=== PATIENT | male | born 1940 | race Caucasian/White ===

== ENCOUNTER 2016-06-18 19:36 | Inpatient (IN) | payer OTHER, BC ==
--- NOTE | 2016-06-18 19:49 | PDOC ---
History of Present Illness - General History Source: Patient, Family Exam Limitations: No Limitations - History of Present Illness Initial Comments: 06/18/16 20:16 The patient is a 75 year old male, with a significant past medical history of thalassemia, COPD, DM, colon polyps, diverticulitis, GERD, BPH, HTN, and gallstones, who presents to the emergency department complaining of chills, lightheadedness and body aches since this morning. The patient reports waking up with chills, lightheadedness, body aches, and a subjective fever. He reports his body aches are mainly localized to his shoulders. The patient reports taking Isis Duarte plus and Amoxicillin for symptoms with no relief. The patient denies any cough, headache, or rhinorrhea. Patient reports a history of a chronic wound on the bottom of the right foot for approximately 2 years. He states he had been following up with [facility] wound clinic, but has not been there in several months secondary to moving down to [place] for the winter. While in [place], the patient reports following up with a wound care doctor. He reports the last time he saw his doctors was 2 weeks ago prior to relocating to [place] for the remainder of the year. The patient denies any increased pain at the site of the wound. The patient denies any abdominal pain, nausea, vomiting, diarrhea, constipation, or changes in urination patterns. The patient denies any chest pain, shortness of breath, diaphoresis, or palpitations. The patient denies any sick contacts. PAST MEDICAL HISTORY: Thalassemia, COPD, DM, colon polyps, diverticulitis, GERD , BPH, HTN, and gallstones. Chronic wound to the right foot. PAST SURGICAL HISTORY: Appendectomy, Cholecystectomy, Umbilical Hernia Repair, Left total knee replacement, Right Shoulder Arthroscopy followed by Staph Sepsis FAMILY HISTORY: No pertinent history SOCIAL HISTORY: Pt lives at home with . Recently traveled to [place] for the winter months. Former smoker(Quit 23 years ago). Denies any ETOH or recreational drug use. MEDICATIONS: reviewed ALLERGIES: As per nursing notes General: Yes: +fever, +chills, +body aches. No weakness, no weight loss HEENT: No change in vision. No sore throat. No ear pain CardioVascular: No chest pain or shortness of breath Respiratory:No cough, or wheezing. Gastrointestinal: No nausea, vomiting, diarrhea or constipation. No rectal bleeding Genitourinary: No dysuria, hematuria, or frequency Musculoskeletal: Yes: +Chronic wound to the write foot. No joint or muscle pain or swelling Neurologic: Yes: +Lightheadedness. No headache, vertigo, or loss of consciousness Psychiatric: No depression Skin: No rashes or easy bruising Endocrine: no increased thirst or abnormal weight change Allergic: no skin or latex allergy All other systems reviewed and normal General: Well-nourished well-developed individual, no acute distress HEENT: Throat: Normal, tonsils normal, no erythema or exudate Neck: Supple, no meningeal signs, no lymphadenopathy Eyes::Pupils equal reactive and round, extraocular motion intact Chest: Nontender to palpation Cardiac: S1-S2 normal, regular rate and rhythm, no murmurs rubs or gallops Respiratory: Lungs clear to auscultation bilateral Abdomen: Soft, nondistended, normal bowel sounds, nontender to palpation diffusely Extremities: 2+ pitting edema to the bilateral lower extremities. Right foot wound: Maceration of the tissue with foul odor and discharge. Wound margins appear infected with greenish-yellowish discoloration of the tissue. There is no increase in warmth to the right foot and no tenderness on palpation of the wound. Patient did not express any discomfort when I probed the wound for the culture. Skin: Right foot wound. Neuro: Alert and oriented x3, nonfocal exam, grossly intact, normal gait Psych: Normal mood and affect <Ginger Golden - Last Filed: 06/18/16 21:46> - General History Source: Patient Exam Limitations: No Limitations - History of Present Illness Initial Comments: 06/18/16 20:47 xray: no acute pathology, reviewed by me. A portion of this note was documented by scribe services under my direction. I have reviewed the details of the note, within reason, and agree with the documentation. The case summary and management plan written by me. Assessment and plan: This is a 75-year-old male with significant medical history for diabetes, hypertension, high cholesterol and gout. Patient comes in complaining of fever. Patient had a fever of 100.7 here in the emergency room. Patient had a markedly elevated white count with left shift of 17.9 with 90% neutrophils. The source of patient's fever and infection is most likely a wound on the bottom of the patient's foot. A wound culture was sent the patient was given thank and Sammy. Discussed admission with patient's primary care doctor Dr. Cadena who will admit patient to an inpatient medical surgical bed. <Esvin Zimmerman I - Last Filed: 06/18/16 22:27> - General Chief Complaint: Cold Symptoms Stated Complaint: FEVER Time Seen by Provider: 06/18/16 19:47 Past History <Ginger Golden - Last Filed: 06/18/16 21:46> - Past Medical History Anemia: Yes (mediterranean anemia( thalassemia)) Asthma: No Cancer: No Cardiac Disorders: No CVA: No COPD: No CHF: No Dementia: No Diabetes: Yes (NIDDM) GI Disorders: Yes (COLON POLYPS;DIVERTICULITIS;ISCHEMIC COLITIS;GERD;ADENOMA) Disorders: Yes (hx bph) HTN: Yes Hypercholesterolemia: No Liver Disease: Yes (hx gall stones) Suicide Attempt (Hx): No Seizures: No Thyroid Disease: No - Surgical History Abdominal Surgery: Yes (S/P BENIGNO IH; UMBILICAL HERNIA REPAIR) Appendectomy: Yes Cardiac Surgery: No Cholecystectomy: Yes (10/24) Lung Surgery: No Neurologic Surgery: No Orthopedic Surgery: Yes (LEFT TKR; S/P RIGHT SHOULDER ARTHROSCOPY FOLLOWED BY STAPH SEPSIS) - Immunization History Immunization Up to Date: Yes - Psycho/Social/Smoking Cessation Hx Anxiety: No Suicidal Ideation: No Smoking Status: No (PREVIOUS CIGAR SMOKER) Smoking History: Former smoker Have you smoked in the past 12 months: No Number of Cigarettes Smoked Daily: 0 If you are a former smoker, when did you quit?: 23 YRS AGO Cigars Per Day: 1 Information on smoking cessation initiated: No 'Breaking Loose' booklet given: 09/25/14 Hx Alcohol Use: No Drug/Substance Use Hx: No Substance Use Type: None Hx Substance Use Treatment: No <Esvin Zimmerman I - Last Filed: 06/18/16 22:27> - Past Medical History Allergies/Adverse Reactions: Allergies Allergy/AdvReac Type Severity Reaction Status Date / Time No Known Allergies Allergy Verified 10/19/14 07:24 Home Medications: Ambulatory Orders Lisinopril [Prinivil] 20 mg PO DAILY 09/19/11 Potassium Chloride 20 meq PO DAILY 09/19/11 Allopurinol [Zyloprim -] 100 mg PO DAILY 08/08/14 Acetaminophen [Tylenol .Regular Strength -] 650 mg PO Q6H PRN #30 tablet Furosemide [Lasix -] 40 mg PO PRN PRN 10/19/14 Aspirin [ASA -] 81 mg PO DAILY 11/02/14 Ranitidine [Zantac -] 150 mg PO BID 11/02/14 Sitagliptin Phosphate [Januvia] 25 mg PO DAILY 11/03/14 *Physical Exam - Vital Signs Last Vital Signs Temp Pulse Resp BP Pulse Ox 100.7 F H 76 14 175/65 99 06/18/16 19:38 06/18/16 19:44 06/18/16 19:38 06/18/16 19:38 06/18/16 19:44 <Ginger Golden - Last Filed: 06/18/16 21:46> - Vital Signs Last Vital Signs Temp Pulse Resp BP Pulse Ox 100.7 F H 76 14 175/65 99 06/18/16 19:38 06/18/16 19:44 06/18/16 19:38 06/18/16 19:38 06/18/16 19:44 <Esvin Zimmerman I - Last Filed: 06/18/16 22:27> Heart Score/ECG Review - ECG Impressions Comment:: 06/18/16 21:03 Vent. Rate: 74 bpm IMPRESSION: Sinus rhythm with occasional premature ventricular complexes. Nonspecific T wave abnormality. <Ginger Golden - Last Filed: 06/18/16 21:46> ED Treatment Course - LABORATORY CBC & Chemistry Diagram: 06/18/16 20:01 06/18/16 20:01 - RADIOLOGY Radiograph Interpretation: 06/18/16 21:34 EXAM: CXR INTERPRETED BY: Dr. Taylor REVIEWED BY: Dr. Davis IMPRESSION: No significant interval change or acute lung disease is present EXAM: X-ray of the right foot, 3 views. INTERPRETED BY: Dr. Taylor REVIEWED BY: Dr. Davis IMPRESSION: There are significant osteoarthritic changes involving the tarsometatarsal joints with dorsal spur formation. Significant osteoarthritic changes involving the first interphalangeal joint. There is evidence of osteopenia. No gross acute fracture, bone destruction or periosteal elevation is identified. No gross soft tissue swelling or air is seen. Osteopenia with significant osteoarthritic changes involving the tarsometatarsal joints. Correlate clinically for further evaluation <Ginger Golden - Last Filed: 06/18/16 21:46> - LABORATORY CBC & Chemistry Diagram: 06/18/16 20:01 06/18/16 20:01 <Esvin Zimmerman I - Last Filed: 06/18/16 22:27> *DC/Admit/Observation/Transfer - Attestations Scribe Attestion: 06/18/16 20:16 Documentation prepared by Ginger Golden, acting as medical technical writer for Esvin Zimmerman MD. <Ginger Golden - Last Filed: 06/18/16 21:46> - Discharge Dispostion Admit: Yes <Esvin Zimmerman I - Last Filed: 06/18/16 22:27> Diagnosis at time of Disposition: Infected puncture wound of plantar aspect of foot Qualifiers: Encounter type: initial encounter Laterality: right Qualified Code(s): S91.331A - Puncture wound without foreign body, right foot, initial encounter; L08.9 - Local infection of the skin and subcutaneous tissue, unspecified Fever Qualifiers: Fever type: unspecified Qualified Code(s): R50.9 - Fever, unspecified - Discharge Dispostion Condition at time of disposition: Good - Referrals Referrals: Will Cadena MD [Primary Care Provider] -
[2016-06-18] MEDS ORDERED: ACETAMINOPHEN 500 MG TABLET (FP) PO ONE (20:22)
[2016-06-18] MEDS ORDERED: ACETAMINOPHEN 325 MG TABLET (FP) ONE (20:38)
[2016-06-18 20:39] LABS: MCH 20.9 pg (25.7-33.7); MCHC 31.2 g/dl (32.0-35.9); MEAN CELL VOLUME 67.1 fl (80-96); MEAN PLT VOLUME 8.2 fl (7.5-11.1); PLATELET COUNT 148 K/MM3 (134-434); RDW 14.8 % (11.9-15.9); WHITE BLOOD COUNT 17.9 K/mm3 (4.0-10.8)
[2016-06-18] MEDS ORDERED: VANCOMYCIN 1,000 MG in DEXTROSE 5%-WATER - 250 ML IVPB ONE (20:44)
[2016-06-18] MEDS ORDERED: PIPERACILLIN/TAZOB 3.375 GM/50 ML PRE-DOCKED IVPB STA (20:46)
[2016-06-18 20:47] LABS: ALK PHOS 58 U/L (32-92); ANION GAP 9 (8-16); BILIRUBIN,TOTAL 1.1 mg/dl (0.2-1.0); CO2 26 mmol/L (22-28); CREATININE 1.6 mg/dl (0.6-1.3); GLUCOSE,RANDOM 118 mg/dl (74-106); SGOT/AST 19 U/L (10-42); SGPT/ALT 14 U/L (10-40); TOT PROT 7.3 g/dl (6.4-8.3)
[2016-06-18] MEDS ORDERED: VANCOMYCIN 1,000 MG VIAL (RESTRICTED TO ID ONLY) ONE ×2 (21:01→21:02)
[2016-06-18] MEDS ORDERED: PIPERACILLIN/TAZOBACTAM 3.375 GM VIAL IVPB ONE (21:01)
[2016-06-18 21:25] LABS: HYPOCHROMIA 2+; MICROCYTOSIS 2+
[2016-06-18] MEDS ORDERED: SODIUM CHLORIDE 500 ML IV STA (22:53)
[2016-06-19 00:28] VITALS: BMI 30.4
[2016-06-19] MEDS: ACETAMINOPHEN 325 MG TABLET (FP) PO PRN ×2 (04:35→18:15)
[2016-06-19] MEDS: INSULIN SLIDING SCALE (NOVOLOG) 1 VIAL SQ SCH ×4 (06:32→21:35)
[2016-06-19] MEDS: GLIMEPIRIDE 1 MG TABLET (FP) PO SCH (06:38)
[2016-06-19 08:14] LABS: PH,URINE 5.5 (4.5-8); URINE APPEARANCE Clear; URINE BILIRUBIN Negative (NEGATIVE); URINE GLUCOSE (UA) Negative (NEGATIVE); URINE KETONE Negative (NEGATIVE); URINE LEUK ESTERASE Negative (NEGATIVE); URINE NITRITE Negative (NEGATIVE); URINE UROBILINOGEN 0.2 E.U/dl (0.2-1.0)
[2016-06-19 08:30] LABS: BASOPHIL 0.3 % (0-2.0); EOSINOPHIL 0.4 % (0-4.5); MCHC 31.3 g/dl (32.0-35.9); MEAN PLT VOLUME 8.4 fl (7.5-11.1); NEUTROPHILS 81.7 % (42.8-82.8); PLATELET COUNT 116 K/MM3 (134-434); RDW 14.7 % (11.9-15.9); WHITE BLOOD COUNT 10.1 K/mm3 (4.0-10.8)
[2016-06-19 08:34] LABS: ALBUMIN 3.3 g/dl (3.5-5.0); ALK PHOS 45 U/L (32-92); ANION GAP 8 (8-16); BILIRUBIN,TOTAL 1.1 mg/dl (0.2-1.0); CALCIUM 8.4 mg/dl (8.4-10.2); CO2 24 mmol/L (22-28); CREATININE 1.5 mg/dl (0.6-1.3); GLUCOSE,RANDOM 129 mg/dl (74-106); SGOT/AST 23 U/L (10-42); SGPT/ALT 15 U/L (10-40); TOT PROT 5.8 g/dl (6.4-8.3)
[2016-06-19 09:08] LABS: URINE BLOOD 2+ (NEGATIVE); URINE COLOR YELLOW; URINE PROTEIN 3+ (NEGATIVE)
[2016-06-19] MEDS: NIFEdipine E.R. 90 MG TABLET (FP) PO SCH (09:23)
[2016-06-19] MEDS: ASPIRIN 81 MG CHEWABLE TABLETS PO SCH (09:25)
[2016-06-19] MEDS: RANITIDINE HCL 150 MG TABLET (FP) PO SCH ×2 (09:25→21:34)
[2016-06-19] MEDS: VANCOMYCIN 1 GRAM (PRE-DOCKED) 250 ML IVPB SCH (09:25)
[2016-06-19] MEDS: ALLOPURINOL 100 MG TABLET (FP) PO SCH (09:25)
[2016-06-19] MEDS: HEPARIN NA (PORCINE) 5,000 UNITS/ML 1ML VIAL SQ SCH ×2 (09:25→21:34)
[2016-06-19] MEDS: METOPROLOL SUCCINATE 100 MG TAB.SR.24H (FP) PO SCH ×2 (09:26→21:34)
--- NOTE | 2016-06-19 10:43 | HP ---
[id number] OF PRESENT ILLNESS: patient is a 75 y/o male with a past medical history of HTN, NIDDM, COPD, thalassemia, pancreatitis, charcot's foot, GERD, BPH. Patient reports a chronic wound to the plantar of his right foot. Patient reports he was last evaluated by Dr Garcia (podiatry) at the wound center at [facility] 6 months ago for a debridment of the wound. Patient reports he lives in [place], six months out of the year. 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 He reports developing chills and bodyaches on 06/18/16 in the AM and self medicated with amoxicillin and deirdre seltzer. at the a chronic wound to the plantar of his right foot. The chills and bodyaches persisted throughout out the day and he sought evaluation in the emergency department. ER course was notable for: (1) WBC 17.9 (2) xray of right foot osteopenia, osteoarthritic changes of the tarsometatarsal joints (3) chest xray, no acute lung disease Recent Travel: returned from [place] 2 weeks ago. PAST MEDICAL HISTORY: Gout, Thalassemia, COPD, NIDDM, colon polyps, diverticulitis, GERD, BPH, HTN, gallstone pancreatitis, charcot's foot. PAST SURGICAL HISTORY: Appendectomy, Cholecystectomy, Umbilical Hernia Repair, exp lap for SBO/VALERY, Left total knee replacement, Right Shoulder Arthroscopy. Social History: retired, lives with his , lives in [place], [place] 6months out of the year Smoking: cigars occasionally Alcohol: none Drugs: none Family History: noncontributory Allergies No Known Allergies Allergy (Verified 10/19/14 07:24) HOME MEDICATIONS: Home Medications Medication Instructions Recorded Lisinopril [Prinivil] 20 mg PO DAILY 09/19/11 Potassium Chloride 20 meq PO DAILY 09/19/11 Allopurinol [Zyloprim -] 100 mg PO DAILY 08/08/14 Acetaminophen [Tylenol .Regular 650 mg PO Q6H PRN #30 tablet 09/29/14 Strength -] Furosemide [Lasix -] 40 mg PO PRN PRN 10/19/14 Aspirin [ASA -] 81 mg PO DAILY 11/02/14 Ranitidine [Zantac -] 150 mg PO BID 11/02/14 Sitagliptin Phosphate [Januvia] 25 mg PO DAILY 11/03/14 REVIEW OF SYSTEMS CONSTITUTIONAL: Present: fever, chills, bodyaches Absent: diaphoresis, generalized weakness, malaise, loss of appetite, weight change HEENT: Absent: rhinorrhea, nasal congestion, throat pain, throat swelling, difficulty swallowing, mouth swelling, ear pain, eye pain, visual changes CARDIOVASCULAR: Absent: chest pain, syncope, palpitations, irregular heart rate, lightheadedness , peripheral edema RESPIRATORY: Absent: cough, shortness of breath, dyspnea with exertion, orthopnea, wheezing, stridor, hemoptysis GASTROINTESTINAL: Absent: abdominal pain, abdominal distension, nausea, vomiting, diarrhea, constipation, melena, hematochezia GENITOURINARY: Absent: dysuria, frequency, urgency, hesitancy, hematuria, flank pain, genital pain MUSCULOSKELETAL: Present: wound to plantar of right foot Absent: myalgia, arthralgia, joint swelling, back pain, neck pain SKIN: Absent: rash, itching, pallor HEMATOLOGIC/IMMUNOLOGIC: Absent: easy bleeding, easy bruising, lymphadenopathy, frequent infections ENDOCRINE: Absent: unexplained weight gain, unexplained weight loss, heat intolerance, cold intolerance NEUROLOGIC: Absent: headache, focal weakness or paresthesias, dizziness, unsteady gait, seizure, mental status changes, bladder or bowel incontinence PSYCHIATRIC: Absent: anxiety, depression, suicidal or homicidal ideation, hallucinations. PHYSICAL EXAMINATION Vital Signs - 24 hr 06/18/16 06/19/16 06/19/16 23:32 06:34 09:02 Temperature 99.3 F 98.9 F Pulse Rate 70 78 Respiratory 18 18 Rate Blood Pressure 128/44 136/61 O2 Sat by Pulse 97 95 95 Oximetry (%) GENERAL: Awake, alert, and fully oriented, in no acute distress. HEAD: Normal with no signs of trauma. EYES: Pupils equal, round and reactive to light, extraocular movements intact, sclera anicteric, conjunctiva clear. No lid lag. EARS, NOSE, THROAT: Ears normal, nares patent, oropharynx clear without exudates. Moist mucous membranes. NECK: Normal range of motion, supple without lymphadenopathy, JVD, or masses. LUNGS: Breath sounds equal, clear to auscultation bilaterally. No wheezes, and no crackles. No accessory muscle use. HEART: Regular rate and rhythm, normal S1 and S2 without murmur, rub or gallop. ABDOMEN: Soft, nontender, not distended, normoactive bowel sounds, no guarding, no rebound, no masses. No hepatomegaly or splenomegaly. MUSCULOSKELETAL: Normal range of motion at all joints. No bony deformities or tenderness. No CVA tenderness. UPPER EXTREMITIES: 2+ pulses, warm, well-perfused. No cyanosis. No clubbing. No peripheral edema. LOWER EXTREMITIES: 2+ pulses, warm, venous stasis changes bilaterally, No calf tenderness. +1 edema bilaterally. RIGHT FOOT: increased warmth, plantar--> 3 x 2cm draining wound with erythematous edges, surrounded by macerated tissue, foul smelling purulent drainage noted NEUROLOGICAL: Cranial nerves II-XII intact. Normal speech. Normal gait. PSYCHIATRIC: Cooperative. Good eye contact. Appropriate mood and affect. SKIN: Warm, dry, normal turgor, no rashes or lesions noted, normal capillary refill. Laboratory Results - last 24 hr 06/19/16 06/19/16 06/19/16 06:21 07:29 07:40 WBC 10.1 D RBC 4.79 Hgb 10.0 L D Hct 32.1 L D MCV 67.0 L MCHC 31.3 L RDW 14.7 Plt Count 116 L D MPV 8.4 Neutrophils % 81.7 Lymphocytes % 11.0 D Monocytes % 6.6 D Eosinophils % 0.4 Basophils % 0.3 Sodium Potassium Chloride Carbon Dioxide Anion Gap BUN Creatinine Creat Clearance w eGFR POC Glucometer 149 Random Glucose Calcium Total Bilirubin AST ALT Alkaline Phosphatase B-Natriuretic Peptide Total Protein Albumin Urine Color Yellow Urine Appearance Clear Urine pH 5.5 Ur Specific [place] 1.015 Urine Protein 3+ H Urine Glucose (UA) Negative Urine Ketones Negative Urine Blood 2+ H Urine Nitrite Negative Urine Bilirubin Negative Urine Urobilinogen 0.2 e.u/dl Ur Leukocyte Esterase Negative 06/19/16 07:40 WBC RBC Hgb Hct MCV MCHC RDW Plt Count MPV Neutrophils % Lymphocytes % Monocytes % Eosinophils % Basophils % Sodium 132 L Potassium 3.5 Chloride 100 Carbon Dioxide 24 Anion Gap 8 BUN 25 H Creatinine 1.5 H Creat Clearance w eGFR 45.38 POC Glucometer Random Glucose 129 H Calcium 8.4 Total Bilirubin 1.1 H AST 23 D ALT 15 Alkaline Phosphatase 45 D B-Natriuretic Peptide 1219.10 H Total Protein 5.8 L D Albumin 3.3 L Urine Color Urine Appearance Urine pH Ur Specific [place] Urine Protein Urine Glucose (UA) Urine Ketones Urine Blood Urine Nitrite Urine Bilirubin Urine Urobilinogen Ur Leukocyte Esterase Microbiology 06/18/16 20:01 Nasopharyngeal Swab Influenza Types A,B Antigen (DANIKA) - Final , negative ASSESSMENT/PLAN: 1 ID: sepsis likely secondary to wound of plantar of right foot - pt febrile with leukocytosis, upon admission from the emergency department, leukocytosis resolved, pt afebrile, monitor WBC and fever curve - f/u wound and blood cultures - esr and crp ordered - continue vancomycin and zosyn, first dose given in ED (06/18), awaiting ID consult for approval of antibiotics - MRI of right foot ordered r/o osteomyelitis - case discussed with Dr Garcia (podiatry), 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, will evaluate patient later today 2) card hypertension - continue procardia and toprol, hold lisinopril due to THEODORE - b/p at goal chronic congestive heart failure - elevated bnp, unknown baseline, pt appears euvolemic on exam, in the setting of sepsis and theodore would hold lasix - strict monitoring of I&O 3) endo niddm - continue glimepiride, fingersticks achs with regular insulin coverage - hgba1c ordered 4) neph acute on chronic renal insufficency - creatine 1.6 baseline 0.9 - hold TONI and januvia - repeat bmp in am, will consider ultrasound of kidney/bladder if creatine is not downtrending F/E/N - diabetic/low sodium diet - replete electrolytes prn ppx - zantac - heparin sq - oob - scd dispo: requires inpatient admission Problem List - Problem (1) Fever Code(s): R50.9 - FEVER, UNSPECIFIED Qualifiers: Fever type: unspecified Qualified Code(s): R50.9 - Fever, unspecified (2) Infected puncture wound of plantar aspect of foot Code(s): S91.339A - PUNCTURE WOUND WITHOUT FOREIGN BODY, UNSP FOOT, INIT ENCNTR L08.9 - LOCAL INFECTION OF THE SKIN AND SUBCUTANEOUS TISSUE, UNSP Qualifiers: Encounter type: initial encounter Laterality: right Qualified Code( s): S91.331A - Puncture wound without foreign body, right foot, initial encounter; L08.9 - Local infection of the skin and subcutaneous tissue, unspecified (3) Diabetes mellitus Code(s): E11.9 - TYPE 2 DIABETES MELLITUS WITHOUT COMPLICATIONS Qualifiers: Diabetes mellitus type: type 2 Diabetes mellitus complication status: without complication (4) Hypertension Code(s): I10 - ESSENTIAL (PRIMARY) HYPERTENSION Qualifiers: Hypertension type: essential hypertension Qualified Code(s): I10 - Essential (primary) hypertension (5) Renal insufficiency Code(s): N28.9 - DISORDER OF KIDNEY AND URETER, UNSPECIFIED Visit type - Emergency Visit Emergency Visit: Yes ED Registration Date: 06/18/16 Care time: The patient presented to the Emergency Department on the above date and was hospitalized for further evaluation of their emergent condition. - New Patient This patient is new to me today: Yes Date on this admission: 06/19/16 - Critical Care Critical Care patient: No
[2016-06-19] MEDS ORDERED: PIPERACILLIN/TAZOB 3.375 GM/50 ML PRE-DOCKED IVPB ONE (12:00)
[2016-06-19] MEDS ORDERED: PIPERACILLIN/TAZOB 3.375 GM/50 ML PRE-DOCKED IVPB SCH (12:00)
--- NOTE | 2016-06-19 12:08 | EKG ---
Test Reason : Blood Pressure : / mmHG Vent. Rate : 074 BPM Atrial Rate : 074 BPM P-R Int : 184 ms QRS Dur : 098 ms QT Int : 384 ms P-R-T Axes : 030 -04 027 degrees QTc Int : 426 ms SINUS RHYTHM WITH OCCASIONAL PREMATURE VENTRICULAR COMPLEXES WHEN COMPARED WITH ECG OF 19-OCT-2014 07:51, NO SIGNIFICANT CHANGE WAS FOUND Confirmed by FRANCO BOLAND MD ([id number]) on 06/19/2016 12:07:42 PM Referred By: MD AVITIA Confirmed By:FRANCO BOLAND MD
[2016-06-19] MEDS: POTASSIUM CHLORIDE TABS 20 MEQ TABLET.ER (FP) PO SCH (14:10)
--- NOTE | 2016-06-19 15:03 | CONSULT ---
Consult Consult Specialty:: infectious diseases Referred by:: Reason for Consultation:: fever,wound infection - History of Present Illness Chief Complaint: fever History of Present Illness: 75 y/o male with a past medical history of HTN, NIDDM, COPD, thalassemia, pancreatitis, charcot's foot, GERD, BPH. patient has known chronic problem of his foot and has been seeing pharmaceutical sales specialist here and in [place] which he saw couple of weeks back He reports developing chills and bodyaches yesterday and self medicated with amoxicillin and deirdre seltzer. at the a chronic wound to the plantar of his right foot. his symptoms are probably due to the wound infection and patient was admitted to the hospital for further workup - History Source History Provided By: Patient Limitations to Obtaining History: No Limitations - Past Medical History Cardio/Vascular: Yes: CAD, HTN, Hyperlipdemia Gastrointestinal: Yes: Diverticulitis, GERD, Other Hepatobiliary: Yes: Cholelithiasis, Other Renal/: Yes: BPH Musculoskeletal: Yes: Other Rheumatology: Yes: Gout Endocrine: Yes: Diabetes Mellitus - Past Surgical History Past Surgical History: Yes: Arthrosocopy, Hernia Repair, Joint Replacement, Tonsillectomy - Alcohol/Substance Use Hx Alcohol Use: No - Smoking History Smoking history: Former smoker Have you smoked in the past 12 months: Yes Aproximately how many cigarettes per day: 3 If you are a former smoker, when did you quit?: 23 YRS AGO - Social History Usual Living Arrangement: Other 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 Home Medications - Allergies Allergies/Adverse Reactions: Allergies Allergy/AdvReac Type Severity Reaction Status Date / Time No Known Allergies Allergy Verified 10/19/14 07:24 - Home Medications Home Medications: Ambulatory Orders Lisinopril [Prinivil] 20 mg PO DAILY 09/19/11 Potassium Chloride 20 meq PO DAILY 09/19/11 Allopurinol [Zyloprim -] 100 mg PO DAILY 08/08/14 Acetaminophen [Tylenol .Regular Strength -] 650 mg PO Q6H PRN #30 tablet Furosemide [Lasix -] 40 mg PO PRN PRN 10/19/14 Aspirin [ASA -] 81 mg PO DAILY 11/02/14 Ranitidine [Zantac -] 150 mg PO BID 11/02/14 Sitagliptin Phosphate [Januvia] 25 mg PO DAILY 11/03/14 Family Disease History - Family Disease History Family Disease History: CA: Father, Other: Mother Review of Systems - Review of Systems Constitutional: reports: Chills, Fever, Other Eyes: reports: No Symptoms HENT: reports: No Symptoms Neck: reports: No Symptoms Cardiovascular: reports: No Symptoms Respiratory: reports: No Symptoms Gastrointestinal: reports: No Symptoms Integumentary: reports: Lesions, Wound Neurological: reports: No Symptoms Endocrine: reports: No Symptoms Hematology/Lymphatic: reports: No Symptoms Psychiatric: reports: No Symptoms Physical Exam Vital Signs: Vital Signs Temperature 98.8 F 06/19/16 14:51 Pulse Rate 61 06/19/16 14:51 Respiratory Rate 18 06/19/16 14:51 Blood Pressure 125/52 06/19/16 14:51 O2 Sat by Pulse Oximetry (%) 99 06/19/16 14:51 Constitutional: Yes: Well Nourished, Calm, Mild Distress Eyes: Yes: Conjunctiva Clear HENT: Yes: Atraumatic Neck: Yes: Supple Cardiovascular: Yes: Regular Rate and Rhythm Respiratory: Yes: Regular, CTA Bilaterally Musculoskeletal: Yes: Other Extremities: Yes: Other (charcots foot) Integumentary: Yes: Other (Wound is noted on the plantar aspect of the right foot inferior to the first metatarsal cuneiform base.) Wound/Incision: Yes: Clean/Dry, Open to air Neurological: Yes: Alert, Oriented Psychiatric: Yes: Alert, Oriented Labs: CBC, BMP 06/19/16 07:40 06/19/16 07:40 Imaging - Results Chest X-ray: Report Reviewed, Image Reviewed X-ray: Report Reviewed, Image Reviewed MRI: Report Reviewed, Image Reviewed Assessment/Plan Problem List - Problem (1) Fever Code(s): R50.9 - FEVER, UNSPECIFIED Qualifiers: Fever type: unspecified Qualified Code(s): R50.9 - Fever, unspecified (2) Infected puncture wound of plantar aspect of foot Code(s): S91.339A - PUNCTURE WOUND WITHOUT FOREIGN BODY, UNSP FOOT, INIT ENCNTR L08.9 - LOCAL INFECTION OF THE SKIN AND SUBCUTANEOUS TISSUE, UNSP Qualifiers: Encounter type: initial encounter Laterality: right Qualified Code( s): S91.331A - Puncture wound without foreign body, right foot, initial encounter; L08.9 - Local infection of the skin and subcutaneous tissue, unspecified (3) Diabetes mellitus Code(s): E11.9 - TYPE 2 DIABETES MELLITUS WITHOUT COMPLICATIONS Qualifiers: Diabetes mellitus type: type 2 Diabetes mellitus complication status: without complication (4) Hypertension Code(s): I10 - ESSENTIAL (PRIMARY) HYPERTENSION Qualifiers: Hypertension type: essential hypertension Qualified Code(s): I10 - Essential (primary) hypertension (5) Renal insufficiency Code(s): N28.9 - DISORDER OF KIDNEY AND URETER, UNSPECIFIED plan will await for podiatry to see the patient mri result noted will await all cx reports once we have everything in hand will decide on further mgmt
[2016-06-19 15:34] LABS: URINE BACTERIA FEW /hpf (NEGATIVE); URINE RBC 0-1 /hpf (0-3)
[2016-06-19] MEDS: PIPERACILLIN/TAZOB 3.375 GM 50 ML IVPB SCH (17:34)
[2016-06-19] MEDS ORDERED: PIPERACILLIN/TAZOB 3.375 GM 50 ML IVPB SCH (18:00)
--- NOTE | 2016-06-19 20:23 | CONSULT ---
Consult Consult Specialty:: Raghu Garcia DPKeysha Perianesthesia Manager Reason for Consultation:: Ulceration plantar aspect of the right foot. - History of Present Illness Chief Complaint: Chills and Fever Yesterday History of Present Illness: Patient was admitted with chills and fever possibly caused by ulceration of the right foot. Patient suffers from chronic ulceration in the plantar aspect of the right foot secondary to Charcot fracture. He reports he sees a patrol police lieutenant in [place] occasionally. - History Source History Provided By: Medical Record - Past Medical History Cardio/Vascular: Yes: CAD, HTN, Hyperlipdemia Gastrointestinal: Yes: Diverticulitis, GERD, Other Hepatobiliary: Yes: Cholelithiasis, Other Renal/: Yes: BPH Musculoskeletal: Yes: Other Rheumatology: Yes: Gout Endocrine: Yes: Diabetes Mellitus - Past Surgical History Past Surgical History: Yes: Arthrosocopy, Hernia Repair, Joint Replacement, Tonsillectomy - Alcohol/Substance Use Hx Alcohol Use: No - Smoking History Smoking history: Former smoker Have you smoked in the past 12 months: Yes Aproximately how many cigarettes per day: 3 If you are a former smoker, when did you quit?: 23 YRS AGO - Social History Usual Living Arrangement: 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 Medications - Allergies Allergies/Adverse Reactions: Allergies Allergy/AdvReac Type Severity Reaction Status Date / Time No Known Allergies Allergy Verified 10/19/14 07:24 - Home Medications Home Medications: Ambulatory Orders Lisinopril [Prinivil] 20 mg PO DAILY 09/19/11 Potassium Chloride 20 meq PO DAILY 09/19/11 Allopurinol [Zyloprim -] 100 mg PO DAILY 08/08/14 Acetaminophen [Tylenol .Regular Strength -] 650 mg PO Q6H PRN #30 tablet Furosemide [Lasix -] 40 mg PO PRN PRN 10/19/14 Aspirin [ASA -] 81 mg PO DAILY 11/02/14 Ranitidine [Zantac -] 150 mg PO BID 11/02/14 Sitagliptin Phosphate [Januvia] 25 mg PO DAILY 11/03/14 Family Disease History - Family Disease History Family Disease History: CA: Father, Other: Mother Review of Systems - Review of Systems Constitutional: reports: No Symptoms (Patient denies fever, chills, or malaise today. He reports "he feels fine".) Physical Exam Vital Signs: Vital Signs Temperature 105.0 F H 06/19/16 18:13 Pulse Rate 61 06/19/16 14:51 Respiratory Rate 18 06/19/16 14:51 Blood Pressure 125/52 06/19/16 14:51 O2 Sat by Pulse Oximetry (%) 99 06/19/16 14:51 Wound/Incision: Yes: Other (Wound is noted on the plantar aspect of the right foot inferior to the first metatarsal cuneiform base. the wound is 1 cm in diameter, 4mm deep, has 2mm peripheral undermining, subcutaneous tissue/chronic inflammatory tissue base, no drainage, no erythema, edema and normal temp.) Labs: CBC, BMP 06/19/16 07:40 06/19/16 07:40 Imaging - Results X-ray: Other (X-ray reviewed by me. Lateral view shows dorsiflexion of the forefoot on the rearfoot with fracturing of the cuneiforms and collapse of the medial arch of the foot.) MRI: Other (MRI was reviewed by me. MRI shows bone marrow edema throughout the midfoot as is consistent with Charcot neuroarthropathy of the foot. 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 Grade 3 ulceration of the plantar aspect of the right foot with extension of wound to deep tissues without any sign of wound having breached deep fascia or underlying bone. No sign of soft tissue or infection at the wound site tonight. Pathomechanics causing the pressure wound of the right foot. Treatment Following a betadine prep, debridement of overlying hyperkeratotic and bruised tissue was completed. No bleeding occurred. Using 4x4 gauze pads with apertures cut in the center, the wound was offloaded. A Sterile dressing was applied with betadine solution. Plan Based on physical exam today, there is no need to treat the wound in patient. I can follow the patient with visits to my office were I will treat and offload the wound. Recommend patient be placed on oral antibiotics on discharge. Recommend patient be discharged pending medical clearance. Thank you for the request for consultation. Raghu Garcia [facility] cell [phone]
[2016-06-20] MEDS: PIPERACILLIN/TAZOB 3.375 GM 50 ML IVPB SCH ×2 (02:00→09:16)
[2016-06-20 05:47] VITALS: BP 113/60; PULSE 59; TEMP 98.7
[2016-06-20] MEDS ORDERED: PT OWN MED DRAWER 7, Y5N ONE (05:54)
[2016-06-20] MEDS: GLIMEPIRIDE 1 MG TABLET (FP) PO SCH (06:05)
[2016-06-20] MEDS: INSULIN SLIDING SCALE (NOVOLOG) 1 VIAL SQ SCH ×2 (06:06→11:55)
[2016-06-20 08:04] LABS: BASOPHIL 0.6 % (0-2.0); EOSINOPHIL 5.1 % (0-4.5); MCH 20.7 pg (25.7-33.7); MCHC 30.8 g/dl (32.0-35.9); MEAN CELL VOLUME 67.2 fl (80-96); MEAN PLT VOLUME 8.3 fl (7.5-11.1); NEUTROPHILS 55.2 % (42.8-82.8); PLATELET COUNT 105 K/MM3 (134-434); RDW 14.8 % (11.9-15.9); WHITE BLOOD COUNT 5.9 K/mm3 (4.0-10.8)
[2016-06-20 08:17] LABS: ANION GAP 5 (8-16); CALCIUM 8.1 mg/dl (8.4-10.2); CO2 23 mmol/L (22-28); CREATININE 1.4 mg/dl (0.6-1.3); GLUCOSE,RANDOM 111 mg/dl (74-106); MAGNESIUM 1.5 mg/dL (1.8-2.4); PHOSPHOROUS 2.3 mg/dl (2.5-4.6)
--- NOTE | 2016-06-20 08:43 | PN ---
Progress Note, Physician History of Present Illness: patient with no complaints evaluated by podiatry debridement done - Current Medication List Current Medications: Active Medications Acetaminophen (Tylenol -) 650 mg PO Q6H PRN PRN Reason: FEVER OR PAIN Last Admin: 06/19/16 18:15 Dose: 650 mg Allopurinol (Zyloprim -) 100 mg PO DAILY [facility] Last Admin: 06/19/16 09:25 Dose: 100 mg Aspirin (Asa -) 81 mg PO DAILY [facility] Last Admin: 06/19/16 09:25 Dose: 81 mg Glimepiride (Amaryl -) 1 mg PO DAILY@0700 [facility] Last Admin: 06/20/16 06:05 Dose: 1 mg Heparin Sodium (Porcine) (Heparin -) 5,000 unit SQ BID [facility] Last Admin: 06/19/16 21:34 Dose: 5,000 unit Vancomycin HCl (Vancomycin (Pre-Docked)) 250 mls @ 166.667 mls/hr IVPB DAILY [facility] PRN Reason: Protocol Last Admin: 06/19/16 09:25 Dose: 166.667 mls/hr Piperacillin Sod/Tazobactam Sod (Zosyn 3.375gm Ivpb (Pre-Docked)) 50 mls @ 100 mls/hr IVPB Q8H-IV [facility] PRN Reason: Protocol Last Admin: 06/20/16 02:00 Dose: 100 mls/hr Insulin Aspart (Novolog Vial Sliding Scale -) 1 vial SQ ACHS [facility] PRN Reason: Protocol Last Admin: 06/20/16 06:06 Dose: Not Given Metoprolol Succinate (Toprol Xl -) 100 mg PO BID [facility] Last Admin: 06/19/16 21:34 Dose: 100 mg Nifedipine (Procardia Xl -) 90 mg PO DAILY [facility] Last Admin: 06/19/16 09:23 Dose: 90 mg Potassium Chloride (K-Dur -) 20 meq PO DAILY [facility] Last Admin: 06/19/16 14:10 Dose: 20 meq Ranitidine HCl (Zantac -) 150 mg PO BID [facility] Last Admin: 06/19/16 21:34 Dose: 150 mg - Objective Vital Signs: Vital Signs Temperature 98.7 F 06/20/16 05:46 Pulse Rate 59 L 06/20/16 05:46 Respiratory Rate 20 06/20/16 08:21 Blood Pressure 113/60 06/20/16 05:46 O2 Sat by Pulse Oximetry (%) 96 06/20/16 08:21 Constitutional: Yes: No Distress, Calm Respiratory: Yes: Regular, CTA Bilaterally Gastrointestinal: Yes: Normal Bowel Sounds, Soft Musculoskeletal: Yes: WNL Extremities: Yes: Other Wound/Incision: Yes: Dressing Dry and Intact Neurological: Yes: Alert, Oriented Psychiatric: Yes: Alert Labs: CBC, BMP 06/20/16 07:00 06/20/16 07:33 Assessment/Plan Problem List - Problem (1) Fever Code(s): R50.9 - FEVER, UNSPECIFIED Qualifiers: Fever type: unspecified Qualified Code(s): R50.9 - Fever, unspecified (2) Infected puncture wound of plantar aspect of foot Code(s): S91.339A - PUNCTURE WOUND WITHOUT FOREIGN BODY, UNSP FOOT, INIT ENCNTR L08.9 - LOCAL INFECTION OF THE SKIN AND SUBCUTANEOUS TISSUE, UNSP Qualifiers: Encounter type: initial encounter Laterality: right Qualified Code( s): S91.331A - Puncture wound without foreign body, right foot, initial encounter; L08.9 - Local infection of the skin and subcutaneous tissue, unspecified (3) Diabetes mellitus Code(s): E11.9 - TYPE 2 DIABETES MELLITUS WITHOUT COMPLICATIONS Qualifiers: Diabetes mellitus type: type 2 Diabetes mellitus complication status: without complication (4) Hypertension Code(s): I10 - ESSENTIAL (PRIMARY) HYPERTENSION Qualifiers: Hypertension type: essential hypertension Qualified Code(s): I10 - Essential (primary) hypertension (5) Renal insufficiency Code(s): N28.9 - DISORDER OF KIDNEY AND URETER, UNSPECIFIED patiets wound debrided patient wants to go home we dont have cx yet but if patient insists on going home then we can send him in augmentin 500 mg twice a day for another 5 days and he needs to follow up his cx reports with his primary and take abx as needed
[2016-06-20] MEDS: VANCOMYCIN 1 GRAM (PRE-DOCKED) 250 ML IVPB SCH (09:16)
[2016-06-20] MEDS: HEPARIN NA (PORCINE) 5,000 UNITS/ML 1ML VIAL SQ SCH (09:16)
[2016-06-20] MEDS: NIFEdipine E.R. 90 MG TABLET (FP) PO SCH (09:16)
[2016-06-20] MEDS: METOPROLOL SUCCINATE 100 MG TAB.SR.24H (FP) PO SCH (09:17)
[2016-06-20] MEDS: ASPIRIN 81 MG CHEWABLE TABLETS PO SCH (09:17)
[2016-06-20] MEDS: POTASSIUM CHLORIDE TABS 20 MEQ TABLET.ER (FP) PO SCH (09:17)
[2016-06-20] MEDS: ALLOPURINOL 100 MG TABLET (FP) PO SCH (09:17)
[2016-06-20] MEDS: RANITIDINE HCL 150 MG TABLET (FP) PO SCH (09:17)
--- NOTE | 2016-06-20 09:49 | DS ---
Physical Examination Vital Signs: Vital Signs Temperature 98.7 F 06/20/16 05:46 Pulse Rate 59 L 06/20/16 05:46 Respiratory Rate 20 06/20/16 08:21 Blood Pressure 113/60 06/20/16 05:46 O2 Sat by Pulse Oximetry (%) 96 06/20/16 08:21 Constitutional: Yes: Well Nourished, No Distress, Calm Cardiovascular: Yes: Regular Rate and Rhythm. No: Gallop, Murmur, Rub Respiratory: Yes: Regular, CTA Bilaterally. No: Rales, Rhonchi, Wheezes Gastrointestinal: Yes: Normal Bowel Sounds, Soft. No: Distention, Tenderness Extremities: Yes: Other (clean appearing wound) Edema: No Labs: CBC, BMP 06/20/16 07:00 06/20/16 07:33 Discharge Summary Reason For Visit: FEVER & INFECTED PUNTURE WOUND Current Active Problems Fever (Acute) Infected puncture wound of plantar aspect of foot (Acute) Hospital Course: Mr Acuña is a very pleasant 75 year old male who comes in with sepsis. He was admitted to the hospital and started on IV antibiotics. He was seen by ID who continued his vancomycin and zosyn. Podiatry evaluated the patient and felt the wound was doing well. He improved significantly and felt much better. He was seen by ID again and stated that he could go home on augmentin and he needs to follow up with Dr Cadena for culture results. Patient understood this and is asking to go home. Since he is doing well he will be discharged on augmentin. He understands that if he worsens or the cultures require IV antibiotics he should come back. He agrees to this. He is currently stable for discharge home. 32 minutes spent in preparation of this discharge Condition: Good - Instructions Diet, Activity, Other Instructions: resume previous diet and activity. Take augmentin 500mg twice a day for 5 days, otherwise no change in medications. Referrals: Will Cadena MD [Primary Care Provider] - Disposition: HOME - Home Medications Comprehensive Discharge Medication List: Ambulatory Orders Lisinopril [Prinivil] 20 mg PO DAILY 09/19/11 Potassium Chloride 20 meq PO DAILY 09/19/11 Allopurinol [Zyloprim -] 100 mg PO DAILY 08/08/14 Acetaminophen [Tylenol .Regular Strength -] 650 mg PO Q6H PRN #30 tablet Furosemide [Lasix -] 40 mg PO PRN PRN 10/19/14 Aspirin [ASA -] 81 mg PO DAILY 11/02/14 Ranitidine [Zantac -] 150 mg PO BID 11/02/14 Sitagliptin Phosphate [Januvia] 25 mg PO DAILY 11/03/14 Amoxicillin/Potassium Clav [Augmentin 500-125 Tablet] 1 each PO BID #10 tablet 06/20/16
[2016-06-20 13:58] LABS: PLATELET ESTIMATE SLT DECREASED (NORMAL)
[2016-06-20 13:59] LABS: BURR CELLS 1+; MICROCYTOSIS 1+; OVALOCYTES FEW
[2016-06-20 14:00] LABS: HYPOCHROMIA 1+
== END 2016-06-20 14:30 | disposition home or self-care (01) | DRG 872 ==
LOC: FER 19:36 → FM/S 22:46
PROVIDERS: ADMIT Internal Medicine Geriatric Medicine; ATTEND Internal Medicine Geriatric Medicine
PROC: 0HDMXZZ Extraction of Right Foot Skin, External Approach (ICD-10-PCS; principal; 2016-06-19)
DX: A41.9 Sepsis, unspecified organism (principal); L97.911 Non-pressure chronic ulcer of unspecified part of right lower leg limited to breakdown of skin; E11.610 Type 2 diabetes mellitus with diabetic neuropathic arthropathy; E11.622 Type 2 diabetes mellitus with other skin ulcer; N40.0 Benign prostatic hyperplasia without lower urinary tract symptoms; K21.9 Gastro-esophageal reflux disease without esophagitis; I10 Essential (primary) hypertension; N28.9 Disorder of kidney and ureter, unspecified
CPT/HCPCS: 36415; 71010-TC; 73630-TC-RT; 73718-TC; 80048; 80053; 81003; 81015; 83036; 83605; 83735; 83880; 84100; 85025; 85651; 86140; 87040; 87070; 87186; 87205; 87254; 87804; 93005; 99284-25; G0480; J1644

== ENCOUNTER 2016-08-25 04:45 | Day surgery (SDC) | payer OTHER, BC ==
[2016-08-22 15:06] VITALS: BMI 31.7
[2016-08-25] MEDS ORDERED: PROPOFOL 20 ML ONE (08:30)
[2016-08-25 09:30] VITALS: TEMP 98.3
[2016-08-25 10:15] VITALS: BP 114/61; PULSE 58
--- NOTE | 2016-08-26 12:26 | PATH ---
Surgical Pathology Report Patient Name: JOSHUA MARTÍNEZ JR [facility]. Rec. #: [id number] /Age/Gender: 1940 (Age: 76) / M Account: [id number] Location: [facility]-ENDOSCOPY Taken: 08/25/2016 Received: 08/25/2016 Reported: 08/26/2016 Physicians: Mariela Michael M.D. Specimen(s) Received A: CECAL POLYP B: BX RIGHT COLON POLYPS C: POLYP HEPATIC FLEXURE D: POLYPS PROXIMAL TRANSVERSE COLON E: POLYP MID TRANSVERSE COLON Clinical History Adenoma surveillance Diverticulosis, melanosis coli, colon polyps Final Diagnosis A. COLON, CECUM, POLYP, POLYPECTOMY: TUBULAR ADENOMA. B. COLON, RIGHT, POLYPS, BIOPSY: FRAGMENTS OF TUBULAR ADENOMA (x2). C. COLON, HEPATIC FLEXURE, POLYP, BIOPSY: FRAGMENTS OF TUBULAR ADENOMA. ADDITIONAL FRAGMENTS OF UNREMARKABLE COLONIC MUCOSA. D. COLON, PROXIMAL TRANSVERSE, POLYPS, POLYPECTOMY: MULTIPLE FRAGMENTS OF TUBULAR ADENOMA. E. COLON, MID TRANSVERSE, POLYP, BIOPSY: FRAGMENTS OF TUBULAR ADENOMA (x2). Electronically Signed Gonzalo Napoles M.D. Gross Description A. Received in formalin, labeled "cecal polyp" is a lackey, polypoid portion of soft tissue measuring 0.6 cm in greatest dimension. The specimen is submitted in toto in one cassette. B. Received in formalin, labeled "biopsy right colon polyp" are 2 lackey, irregular portions of soft tissue measuring 0.2 and 0.3 cm in greatest dimension. The specimens are submitted in toto in one cassette. C. Received in formalin, labeled "biopsy polyp hepatic flexure" are 3 lackey, irregular portions of soft tissue ranging from 0.1-0.5 cm in greatest dimension. The specimens are submitted in toto in one cassette. D. Received in formalin, labeled "polyps proximal transverse" are 4 lackey, irregular portions of soft tissue ranging from 0.2-0.4 cm in greatest dimension. The specimens are submitted in toto in one cassette. E. Received in formalin, labeled "biopsy mid transverse colon polyp" are 2 lackey, irregular portions of soft tissue averaging 0.3 cm in greatest dimension. The specimens are submitted in toto in one cassette. DL/08/[id number]/25/[id number]
== END 2016-08-25 11:50 | disposition home or self-care (01) ==
LOC: JASU-ENDO 04:45
PROVIDERS: ATTEND Internal Medicine Gastroenterology
PROC: 0DBL8ZX Excision of Transverse Colon, Via Natural or Artificial Opening Endoscopic, Diagnostic (ICD-10-PCS; 2016-08-25)
PROC: 0DBK8ZX Excision of Ascending Colon, Via Natural or Artificial Opening Endoscopic, Diagnostic (ICD-10-PCS; 2016-08-25)
PROC: 0DBL8ZX Excision of Transverse Colon, Via Natural or Artificial Opening Endoscopic, Diagnostic (ICD-10-PCS; 2016-08-25)
PROC: 0DBH8ZX Excision of Cecum, Via Natural or Artificial Opening Endoscopic, Diagnostic (ICD-10-PCS; principal; 2016-08-25 09:00)
DX: Z86.010 Personal history of colon polyps (principal); D12.0 Benign neoplasm of cecum; D12.2 Benign neoplasm of ascending colon; D12.3 Benign neoplasm of transverse colon; K57.30 Diverticulosis of large intestine without perforation or abscess without bleeding; K63.89 Other specified diseases of intestine; K64.8 Other hemorrhoids; I10 Essential (primary) hypertension; E11.9 Type 2 diabetes mellitus without complications; M10.9 Gout, unspecified; N40.0 Benign prostatic hyperplasia without lower urinary tract symptoms
CPT/HCPCS: 88305-TC

== ENCOUNTER 2016-08-29 08:01 | Day surgery (SDC) | payer OTHER, BC ==
[2016-08-28 09:59] VITALS: BMI 31.7
[2016-08-29 08:37] LABS: MAGNESIUM 1.9 mg/dL (1.8-2.4)
[2016-08-29] MEDS ORDERED: BUPIVACAINE HCL/PF 0.5% (5MG/ML) 10 ML VIAL ONE (09:57)
[2016-08-29] MEDS ORDERED: LIDOCAINE 1%/EPI 1:100000 (50 ML MULTI DOSE VIAL) ONE (09:57)
[2016-08-29] MEDS ORDERED: MIDAZOLAM HCL 2 MG/2 ML SINGLE DOSE VIAL ONE (10:17)
[2016-08-29] MEDS ORDERED: PROPOFOL 20 ML ONE (10:32)
[2016-08-29] MEDS ORDERED: ceFAZolin SODIUM 1 GM VIAL IVPB ONE (10:42)
[2016-08-29] MEDS ORDERED: BUPIVACAINE HCL/PF 0.5% (5MG/ML) 10 ML VIAL IJ ONE (10:48)
[2016-08-29] MEDS ORDERED: LIDOCAINE 1%/EPI 1:100000 (20 ML MULTI DOSE VIAL) INF ONE (10:48)
[2016-08-29] MEDS ORDERED: hydrALAZINE HCL 20 MG/ML VIAL ONE (11:12)
[2016-08-29] MEDS ORDERED: oxyCODONE HCL 5 MG TABLET PO PRN (11:53)
[2016-08-29] MEDS ORDERED: PROMETHAZINE HCL 25 MG/1 ML VIAL IVPUSH PRN (11:53)
[2016-08-29] MEDS ORDERED: ONDANSETRON 4 MG/2 ML VIAL IVPUSH PRN (11:53)
[2016-08-29 17:40] VITALS: BP 125/60; PULSE 62; TEMP 97.8
--- NOTE | 2016-08-30 10:23 | OP ---
DATE OF OPERATION: 08/29/2016 PREOPERATIVE DIAGNOSIS: Charcot foot, consolidated. POSTOPERATIVE DIAGNOSIS: Charcot foot, consolidated. PROCEDURE: Partial ostectomy of the right first metatarsal base and the right medial cuneiform base. DESCRIPTION OF PROCEDURE: Under fractional anesthesia and a surgical scrub with Betadine scrub and solution x2, the patient was draped using sterile technique. After 3 minutes of right limb elevation, a right ankle tourniquet was inflated to 250 mmHg pressure for 51 minutes. Inspection of the right foot showed a stable mid-foot that was not hypermobile and a large prominence on the plantar medial aspect of the right foot where a previous ulceration was located. Using a number 15 blade, a curvilinear incision was made on the medial aspect of the right foot over the first metatarsal cuneiform joint. The incision was deepened through superficial fascia and retracted, exposing the deep fascia. A linear longitudinal incision was made in the deep fascia, and the deep fascia was dissected from the bones on the plantar aspect. The dorsal aspect of the joint capsule and ligamentous structure and tendon insertion was left in place as it was not necessary to resect bone from that site. Using a sagittal bone saw, prominent plantar bone was resected from the first metatarsal base and the medial cuneiform base. Using a bone rasp, the bone was smoothed, removing any prominences or sharp points. the tissue was inspected to see that the prominence was removed from inferior to the prior ulceration, and once it was determined that the ulceration no longer would get pinpoint pressure, copious irrigation was applied to the wound. The deep tissue including ligamentous structures, joint capsule, and tendon insertions was all reapproximated and closed with 4-0 Vicryl. The superficial fascia was closed in a similar manner, and then, skin was reapproximated and closed with 4-0 Prolene mattress and simple interrupted sutures. A dry, sterile compression dressing was applied to the right foot. The patient tolerated the surgical procedure well and left the operating room stable, alert, awake, and in no pain. MELODIE GUTIÉRREZ/[id number]
--- NOTE | 2016-09-01 16:02 | PATH ---
Surgical Pathology Report Patient Name: JOSHUA MARTÍNEZ JR [facility]. Rec. #: [id number] /Age/Gender: 1940 (Age: 76) / M Account: [id number] Location: [facility] SURGICAL Taken: 08/29/2016 Received: 08/29/2016 Reported: 09/01/2016 Physicians: Joshua Garcia M.D. Specimen(s) Received BONE, FIRST METATARSAL BASE AND CUNIFORM BASE, RIGHT FOOT Clinical History Charcot's joint, right ankle and foot Type 2 diabetes mellitus with foot ulcer Final Diagnosis BONE, RIGHT FOOT, EXCISION: BONE WITH REACTIVE CHANGES, WITH ATTACHED CARTILAGE AND SYNOVIUM. Electronically Signed lOman Burnham M.D. Gross Description Received in formalin labeled "bone first metatarsal base and cuneiform base right foot," are 2 lackey, irregular portions of bone measuring 1.2 x 1.0 x 0.3 cm and 2.8 x 1.7 x 0.3 cm. Sections are submitted in 2 cassettes as follows: 1-smaller portion of bone in toto, following decalcification; 2-business process representative sections of larger portion of bone, following decalcification. /08/29/2016 [facility]08/29/2016
== END 2016-08-29 14:15 | disposition home or self-care (01) ==
LOC: JASU-SURG 08:01
PROVIDERS: ATTEND Podiatrist Foot Surgery
PROC: 0QBN0ZZ Excision of Right Metatarsal, Open Approach (ICD-10-PCS; principal; 2016-08-29 10:00)
DX: E11.621 Type 2 diabetes mellitus with foot ulcer (principal); M14.671 Charcot's joint, right ankle and foot
CPT/HCPCS: 36415; 73630-TC-RT; 83735; 84132; 88304-TC; 88311-TC; 94760

== ENCOUNTER 2016-09-02 19:21 | Inpatient (IN) | payer OTHER, BC ==
[2016-09-02 19:46] VITALS: BMI 30.9
[2016-09-02] MEDS ORDERED: SODIUM CHLORIDE 1,000 ML IV ONE (19:48)
[2016-09-02] MEDS ORDERED: ACETAMINOPHEN 1000 MG/100 ML VIAL (NON FORMULARY) IVPB ONE (19:49)
--- NOTE | 2016-09-02 19:49 | PDOC ---
History of Present Illness - History of Present Illness Initial Comments: 09/02/16 20:23 The patient is a 76 year old male, with a significant past medical history of diabetes and hypertension, who presents to the emergency department with fever ( Tmax 103F) s/p right cataract removal today and 1 week s/p right foot surgery. He reports taking Tylenol after his surgery when he recorded his temperature to be 103F. He also reports a low-grade fever a couple of days ago. He denies any other complaints. He denies chest pain, shortness of breath, headache and dizziness. He denies chills, nausea, vomit, diarrhea and constipation. He denies dysuria, frequency, urgency and hematuria. Allergies: NKDA Past surgical history: partial ostectomy of the right first metatarsal base and the right medial cuneiform base (08/29/16) PCP - Dr. Cadena PAST MEDICAL HISTORY: no significant history PAST SURGICAL HISTORY: no significant history FAMILY HISTORY: no pertinent history SOCIAL HISTORY: Pt lives with family MEDICATIONS: reviewed ALLERGIES: As per nursing notes ROS General: (+) fevers. No chills, no weakness, no weight loss HEENT: No change in vision. No sore throat,. No ear pain CardioVascular: No chest pain or shortness of breath Respiratory:No cough, or wheezing. Gastrointestinal: no nausea, vomiting, diarrhea or constipation, No rectal bleeding Genitourinary: No dysuria, hematuria, or frequency Musculoskeletal: No joint or muscle pain or swelling Neurologic: No headache, vertigo, dizziness or loss of consciousness Psychiatric: No depression Skin: No rashes or easy bruising Endocrine: no increased thirst or abnormal weight change Allergic: no skin or latex allergy All other systems reviewed and normal Physical Exam: General: Well-nourished well-developed individual, no acute distress HEENT: Throat: Normal, tonsils normal, no erythema or exudate Neck: Supple, no meningeal signs, no lymphadenopathy Eyes::Pupils equal reactive and round, extraocular motion intact Chest: Nontender to palpation Cardiac: S1-S2 normal, regular rate and rhythm, no murmurs rubs or gallops Respiratory: Lungs clear to auscultation bilateral Abdomen: Soft, nondistended, normal bowel sounds, nontender to palpation diffusely Extremities: (+) right foot is red, hot, swollen, erythema to surgical site without tenderness or purulence. There is no palpable collection. no cyanosis, clubbing, Skin: No rashes Neuro: Alert and oriented x3, nonfocal exam, grossly intact, normal gait Psych: Normal mood and affect <Maddy Welsh - Last Filed: 09/02/16 21:02> - General History Source: Patient Exam Limitations: No Limitations - History of Present Illness Initial Comments: 09/02/16 21:16 A portion of this note was documented by scribe services under my direction. I have reviewed the details of the note, within reason, and agree with the documentation. The case summary and management plan written by me. Assessment and plan: This is a 68-year-old male who comes in with fever of 102. Patient has been having a fever for several days. Patient is status post foot surgery on the of this month approximately 4 days ago. Patient has been having fever since the foot surgery and then today had some eye surgery. Patient was given thank and Zosyn as the source of his fever is his foot his foot is red hot swollen there is no purulent discharge from the surgical wound and noted he since at this time. Patient will be admitted to a MedSurg bed for cellulitis and sepsis Discussed with Dr. Clifford and patient will be admitted under Dr. Torres service. Patient will be admitted to a MedSurg bed <Esvin Zimmerman I - Last Filed: 09/02/16 21:19> - General Chief Complaint: Weakness Stated Complaint: FEVER,WEAKNESS Time Seen by Provider: 09/02/16 19:29 Past History <Maddy Welsh - Last Filed: 09/02/16 21:02> - Past Medical History Anemia: Yes (mediterranean anemia -thalassemia) Asthma: No Cancer: No Cardiac Disorders: No CVA: No COPD: No CHF: No Dementia: No Diabetes: Yes (NIDDM no medication) GI Disorders: Yes (colon polyps;diverticulitis;ischemic colitis;gerd;adenoma) Disorders: Yes (bph) HTN: Yes Hypercholesterolemia: No Liver Disease: Yes (hx gall stones) Suicide Attempt (Hx): No Seizures: No Thyroid Disease: No - Surgical History Abdominal Surgery: Yes (S/P BENIGNO IH; UMBILICAL HERNIA REPAIR) Appendectomy: Yes Cardiac Surgery: No Cholecystectomy: Yes (10/24) Lung Surgery: No Neurologic Surgery: No Orthopedic Surgery: Yes (LEFT TKR; S/P RIGHT SHOULDER ARTHROSCOPY FOLLOWED BY LUIS PETER) - Immunization History Immunization Up to Date: Yes - Psycho/Social/Smoking Cessation Hx Anxiety: No Suicidal Ideation: No Smoking Status: No (PREVIOUS CIGAR SMOKER) Smoking History: Former smoker Have you smoked in the past 12 months: No Number of Cigarettes Smoked Daily: 3 If you are a former smoker, when did you quit?: 1993 Cigars Per Day: 3 Information on smoking cessation initiated: No 'Breaking Loose' booklet given: 08/22/16 Hx Alcohol Use: No Drug/Substance Use Hx: No Substance Use Type: None Hx Substance Use Treatment: No <Esvin Zimmerman I - Last Filed: 09/02/16 21:19> - Past Medical History Allergies/Adverse Reactions: Allergies Allergy/AdvReac Type Severity Reaction Status Date / Time No Known Allergies Allergy Verified 08/29/16 08:55 Home Medications: Ambulatory Orders Lisinopril [Prinivil] 20 mg PO DAILY 09/19/11 Potassium Chloride 20 meq PO PRN PRN 09/19/11 Allopurinol [Zyloprim -] 100 mg PO DAILY 08/08/14 Furosemide [Lasix -] 40 mg PO PRN PRN 10/19/14 Aspirin [ASA -] 81 mg PO DAILY 11/02/14 Cholecalciferol (Vitamin D3) [Vitamin D3] 2,000 unit PO DAILY 08/25/16 Metoprolol Succinate [Toprol XL -] 100 mg PO DAILY 08/25/16 Ranitidine [Zantac -] 150 mg PO BID 08/25/16 Saw [place] Xtr/Zinc Picolin [Saw [place] Capsule] 1 each PO DAILY 08/25/16 *Physical Exam - Vital Signs Last Vital Signs Temp Pulse Resp BP Pulse Ox 102.4 F H 85 18 123/65 99 09/02/16 19:33 09/02/16 19:33 09/02/16 19:33 09/02/16 19:33 09/02/16 19:33 <Maddy Welsh - Last Filed: 09/02/16 21:02> - Vital Signs Last Vital Signs Temp Pulse Resp BP Pulse Ox 102.4 F H 85 18 123/65 99 09/02/16 19:33 09/02/16 19:33 09/02/16 19:33 09/02/16 19:33 09/02/16 19:33 <Esvin Zimmerman I - Last Filed: 09/02/16 21:19> ED Treatment Course - LABORATORY CBC & Chemistry Diagram: 09/02/16 20:00 09/02/16 20:00 - Medications Given in the ED: ED Medications Discontinued Medications Generic Name Dose Route Start Last Admin Trade Name Stewart PRN Reason Stop Dose Admin Acetaminophen 1,000 mg 09/02/16 19:49 09/02/16 20:05 Ofirmev Injection - IVPB 09/02/16 19:50 1,000 mg ONCE ONE Administration <Maddy Welsh - Last Filed: 09/02/16 21:02> - LABORATORY CBC & Chemistry Diagram: 09/02/16 20:00 09/02/16 20:00 <Esvin Zimmerman I - Last Filed: 09/02/16 21:19> Medical Decision Making - Medical Decision Making 09/02/16 20:56 Dr. Cadena was paged at this time via phone answering service requesting a call bacl for doctor to doctor consult. I have been informed Dr. Clifford is covering Dr. Cadena and will return the call at his earliest convenience. <Maddy Welsh - Last Filed: 09/02/16 21:02> *DC/Admit/Observation/Transfer - Attestations Scribe Attestion: 09/02/16 20:25 Documentation prepared by Maddy Welsh, acting as medical radiation tech for Esvin Zimmerman MD <Maddy Welsh - Last Filed: 09/02/16 21:02> - Discharge Dispostion Admit: Yes <Esvin Zimmerman I - Last Filed: 09/02/16 21:19> Diagnosis at time of Disposition: Cellulitis of foot Sepsis Qualifiers: Sepsis type: sepsis due to unspecified organism Qualified Code(s): A41.9 - Sepsis, unspecified organism - Discharge Dispostion Condition at time of disposition: Stable - Referrals Referrals: Will Cadena MD [Primary Care Provider] -
[2016-09-02] MEDS ORDERED: ACETAMINOPHEN INJECTION 100 ML IVPB ONE (19:50)
[2016-09-02 20:15] LABS: BASOPHIL 1.3 % (0-2.0); EOSINOPHIL 0.1 % (0-4.5); MCH 20.8 pg (25.7-33.7); MCHC 30.9 g/dl (32.0-35.9); MEAN CELL VOLUME 67.1 fl (80-96); MEAN PLT VOLUME 8.2 fl (7.5-11.1); PLATELET COUNT 163 K/MM3 (134-434); RDW 15.1 % (11.9-15.9); WHITE BLOOD COUNT 8.2 K/mm3 (4.0-10.8)
[2016-09-02] MEDS ORDERED: PIPERACILLIN/TAZOB 3.375 GM/50 ML PRE-DOCKED IVPB STA (20:18)
[2016-09-02] MEDS ORDERED: VANCOMYCIN 1,000 MG VIAL (RESTRICTED TO ID ONLY) ONE (20:26)
[2016-09-02] MEDS ORDERED: PIPERACILLIN/TAZOBACTAM 3.375 GM VIAL IVPB ONE (20:26)
[2016-09-02 20:29] LABS: ACTIVATED PTT 30.9 SECONDS (24.0-38.9)
[2016-09-02] MEDS ORDERED: VANCOMYCIN 1 GRAM (PRE-DOCKED) 250 ML IVPB ONE (20:30)
[2016-09-02 20:33] LABS: ALBUMIN 3.2 g/dl (3.5-5.0); ALK PHOS 115 U/L (32-92); ANION GAP 9 (8-16); CALCIUM 8.8 mg/dl (8.4-10.2); CO2 22 mmol/L (22-28); CREATININE 1.8 mg/dl (0.6-1.3); GLUCOSE,RANDOM 150 mg/dl (74-106); INR 1.38 (0.82-1.09); PROTHROMBIN TIME (PATIENT) 15.4 SEC (10.2-13.0); SGOT/AST 42 U/L (10-42); SGPT/ALT 44 U/L (10-40); TOT PROT 6.3 g/dl (6.4-8.3)
[2016-09-02 20:44] LABS: TROPONIN I (DFP) 0.04 ng/ml (0.03-0.50)
[2016-09-02 21:05] LABS: CK MB 0.042 ng/ml (0.3-4.0)
[2016-09-02 21:09] LABS: VENOUS PH 7.44 (7.32-7.42)
[2016-09-02 21:13] LABS: VENOUS BLOOD GAS HCO3 22.4 meq/L (19-25)
[2016-09-02 21:22] LABS: HYPOCHROMIA 2+; MICROCYTOSIS 2+; PLATELET ESTIMATE ADEQUATE (NORMAL); TEAR DROP CELLS FEW
[2016-09-02] MEDS ORDERED: SODIUM CHLORIDE 1,000 ML IV SCH (21:30)
[2016-09-02] MEDS ORDERED: VANCOMYCIN 1,000 MG in DEXTROSE 5%-WATER - 250 ML IVPB SCH (22:00)
[2016-09-02] MEDS ORDERED: POTASSIUM CHLORIDE TABS 20 MEQ TABLET.ER (FP) PO ONE (22:30)
[2016-09-02] MEDS: RANITIDINE HCL 150 MG TABLET (FP) PO SCH (23:40)
[2016-09-02] MEDS: HEPARIN NA (PORCINE) 5,000 UNITS/ML 1ML VIAL SQ SCH (23:40)
[2016-09-03] MEDS: INSULIN SLIDING SCALE (NOVOLOG) 1 VIAL SQ SCH ×5 (00:23→21:11)
--- NOTE | 2016-09-03 08:35 | HP ---
CHIEF COMPLAINT: fever PCP: [facility] HISTORY OF PRESENT ILLNESS: Patient is a 76 y/o male with a past medical history of HTN, NIDDM, COPD, thalasemia, pancreastitis, charcot's foot, and BPH. Patient is s/p partial ostectomy of the right first metatarsal base and the right medial cuneiform base (08/29/16, [facility]) He reports recovering at home, however, yesterday evening he report fever tmax of 103 and chills. Patient denies any pain to the right foot. ER course was notable for: (1) xray of chest: no acute disease (2) tmax 102.4 (3) ekg nsr Recent Travel: resides 6months of the year in [place] PAST MEDICAL HISTORY: HTN, NIDDM, COPD, thalasemia, pancreastitis, charcot's foot, BPH, and CKD. PAST SURGICAL HISTORY: appendectomy, cholescytectomy, umbilical hernia repair, exp lap sbo/viet, L TKR, right shoulder arthoscopy Social History: resides at home with , retired Smoking: none Alcohol: none Drugs: none Family History: noncontributory Allergies No Known Allergies Allergy (Verified 08/29/16 08:55) HOME MEDICATIONS: Home Medications Medication Instructions Recorded Lisinopril [Prinivil] 20 mg PO DAILY 09/19/11 Potassium Chloride 20 meq PO PRN PRN 09/19/11 Allopurinol [Zyloprim -] 100 mg PO DAILY 08/08/14 Furosemide [Lasix -] 40 mg PO PRN PRN 10/19/14 Aspirin [ASA -] 81 mg PO DAILY 11/02/14 Cholecalciferol (Vitamin D3) 2,000 unit PO DAILY 08/25/16 [Vitamin D3] Metoprolol Succinate [Toprol XL -] 100 mg PO DAILY 08/25/16 Ranitidine [Zantac -] 150 mg PO BID 08/25/16 Saw [place] Xtr/Zinc Picolin [Saw 1 each PO DAILY 08/25/16 [place] Capsule] REVIEW OF SYSTEMS CONSTITUTIONAL: Present: fever, chills Absent: diaphoresis, generalized weakness, malaise, loss of appetite, weight change HEENT: Absent: rhinorrhea, nasal congestion, throat pain, throat swelling, difficulty swallowing, mouth swelling, ear pain, eye pain, visual changes CARDIOVASCULAR: Absent: chest pain, syncope, palpitations, irregular heart rate, lightheadedness , peripheral edema RESPIRATORY: Absent: cough, shortness of breath, dyspnea with exertion, orthopnea, wheezing, stridor, hemoptysis GASTROINTESTINAL: Absent: abdominal pain, abdominal distension, nausea, vomiting, diarrhea, constipation, melena, hematochezia GENITOURINARY: Absent: dysuria, frequency, urgency, hesitancy, hematuria, flank pain, genital pain MUSCULOSKELETAL: Absent: myalgia, arthralgia, joint swelling, back pain, neck pain SKIN: Absent: rash, itching, pallor HEMATOLOGIC/IMMUNOLOGIC: Absent: easy bleeding, easy bruising, lymphadenopathy, frequent infections ENDOCRINE: Absent: unexplained weight gain, unexplained weight loss, heat intolerance, cold intolerance NEUROLOGIC: Absent: headache, focal weakness or paresthesias, dizziness, unsteady gait, seizure, mental status changes, bladder or bowel incontinence PSYCHIATRIC: Absent: anxiety, depression, suicidal or homicidal ideation, hallucinations. PHYSICAL EXAMINATION Vital Signs - 24 hr 09/02/16 09/03/16 09/03/16 23:26 06:44 08:08 Temperature 98.1 F 99.5 F Pulse Rate 65 71 Respiratory 18 20 20 Rate Blood Pressure 113/53 126/60 O2 Sat by Pulse 94 L 94 L 94 L Oximetry (%) GENERAL: obese, Awake, alert, and fully oriented, in no acute distress. HEAD: Normal with no signs of trauma. EYES: Pupils equal, round and reactive to light, extraocular movements intact, sclera anicteric, conjunctiva clear. No lid lag. EARS, NOSE, THROAT: Ears normal, nares patent, oropharynx clear without exudates. Moist mucous membranes. NECK: Normal range of motion, supple without lymphadenopathy, JVD, or masses. LUNGS: Breath sounds equal, clear to auscultation bilaterally. No wheezes, and no crackles. No accessory muscle use. HEART: Regular rate and rhythm, normal S1 and S2 without murmur, rub or gallop. ABDOMEN: Soft, nontender, not distended, normoactive bowel sounds, no guarding, no rebound, no masses. No hepatomegaly or splenomegaly. MUSCULOSKELETAL: Normal range of motion at all joints. No bony deformities or tenderness. No CVA tenderness. UPPER EXTREMITIES: 2+ pulses, warm, well-perfused. No cyanosis. No clubbing. No peripheral edema. LOWER EXTREMITIES: 2+ pulses, warm, well-perfused. No calf tenderness. +1 edema. venous stasis changes RIGHT LOWER EXTREMITY: distal medial foot, 5 horizontal mattress sutures, erythema noted, no drainage, 2 x2 cm macerated area noted to plantar NEUROLOGICAL: Cranial nerves II-XII intact. Normal speech. Normal gait. PSYCHIATRIC: Cooperative. Good eye contact. Appropriate mood and affect. SKIN: Warm, dry, normal turgor, no rashes or lesions noted, normal capillary refill. Laboratory Results - last 24 hr 09/03/16 06:37 POC Glucometer 131 ASSESSMENT/PLAN: 1) sepsis - likely secondary to surgical site - continue vancomycin and zosyn awaiting ID consult for antibiotic approval - f/u blood and urine culture - follow wbc and fever curve - appreciate ID input 2) card hypertension - continue toprol, will hold lisinopril in setting of THEODORE - b/p at goal, strict b/p monitoring chronic congestive heart failure - pt appears euvolemic on exam, hold lasix in setting of theodore and sepsis 3) ms gout - no acute excerbation at this time, continue allopurinol 4) nephrology acute renal insufficiency - likely prerenal in setting of sepsis, - creatine 1.7, baseline 0.9, avoid nephrotoxic agents - repeat bmp in am f/e/n - low sodium diet - replete potassium ppx - heparin - oob - scd dispo: requires inpatient admission Visit type - Emergency Visit Emergency Visit: Yes ED Registration Date: 09/02/16 Care time: The patient presented to the Emergency Department on the above date and was hospitalized for further evaluation of their emergent condition. - New Patient This patient is new to me today: No - Critical Care Critical Care patient: No
[2016-09-03 08:41] LABS: ALBUMIN 2.9 g/dl (3.5-5.0); ALK PHOS 88 U/L (32-92); ANION GAP 8 (8-16); BILIRUBIN,TOTAL 1.2 mg/dl (0.2-1.0); CALCIUM 8.2 mg/dl (8.4-10.2); CO2 21 mmol/L (22-28); CREATININE 1.7 mg/dl (0.6-1.3); GLUCOSE,RANDOM 115 mg/dl (74-106); SGOT/AST 31 U/L (10-42); SGPT/ALT 34 U/L (10-40); TOT PROT 5.6 g/dl (6.4-8.3)
[2016-09-03 09:04] LABS: BASOPHIL 0.6 % (0-2.0); EOSINOPHIL 0.5 % (0-4.5); MCH 20.9 pg (25.7-33.7); MEAN CELL VOLUME 67.5 fl (80-96); MEAN PLT VOLUME 9.7 fl (7.5-11.1); NEUTROPHILS 74.3 % (42.8-82.8); PLATELET COUNT 166 K/MM3 (134-434); RDW 15.1 % (11.9-15.9); WHITE BLOOD COUNT 7.6 K/mm3 (4.0-10.8)
[2016-09-03] MEDS: CHOLECALCIFEROL (VITAMIN D3) 1,000 UNIT TABLET (FP) PO SCH (09:22)
[2016-09-03] MEDS: RANITIDINE HCL 150 MG TABLET (FP) PO SCH ×2 (09:23→21:03)
[2016-09-03] MEDS: METOPROLOL SUCCINATE 100 MG TAB.SR.24H (FP) PO SCH (09:23)
[2016-09-03] MEDS: HEPARIN NA (PORCINE) 5,000 UNITS/ML 1ML VIAL SQ SCH ×2 (09:23→21:03)
[2016-09-03] MEDS: ALLOPURINOL 100 MG TABLET (FP) PO SCH (09:23)
[2016-09-03] MEDS: LISINOPRIL 20 MG TABLET (FP) PO SCH (09:23)
[2016-09-03] MEDS: ASPIRIN 81 MG CHEWABLE TABLETS PO SCH (09:23)
[2016-09-03] MEDS: ACETAMINOPHEN 325 MG TABLET (FP) PO PRN ×2 (09:43→16:33)
[2016-09-03] MEDS ORDERED: PIPERACILLIN/TAZOB 2.25 GM 50 ML IVPB SCH (10:00)
[2016-09-03] MEDS ORDERED: POTASSIUM CHLORIDE TABS 20 MEQ TABLET.ER (FP) PO ONE (11:30)
--- NOTE | 2016-09-03 11:52 | CONSULT ---
Consult Consult Specialty:: infectious diseases Referred by:: Reason for Consultation:: cellulitits left foot - History of Present Illness Chief Complaint: fever weakness History of Present Illness: 76 y/o male with a past medical history of HTN, NIDDM, COPD, thalessemia, pancreatitis charcot's foot, BPH, and CKD. Patient is s/p partial ostectomy of the right first metatarsal base and the right medial cuneiform base (08/29/16 , patient started spiking fever from thursday and spiked as hig as 104 according to the patient and family who is in the room with him she mentions that he became very weak and that is why she brought him to the hospital according to them patient was spiking fevers about 8 days back which was mostly viral and saw his pcp and then he was afebrile for more than a week he also had some surgery on his eyes post eye surgery also patient was weak currently patient feels weak,denies any other issues also mentions that he had chills and was very weak - History Source History Provided By: Patient, Family Member Limitations to Obtaining History: No Limitations - Past Medical History Cardio/Vascular: Yes: CAD, HTN, Hyperlipdemia Gastrointestinal: Yes: Diverticulitis, GERD, Other Hepatobiliary: Yes: Cholelithiasis, Other Renal/: Yes: BPH Musculoskeletal: Yes: Other Rheumatology: Yes: Gout Endocrine: Yes: Diabetes Mellitus - Past Surgical History Past Surgical History: Yes: Arthrosocopy, Hernia Repair, Joint Replacement, Tonsillectomy - Alcohol/Substance Use Hx Alcohol Use: No - Smoking History Smoking history: Former smoker Have you smoked in the past 12 months: No Aproximately how many cigarettes per day: 3 If you are a former smoker, when did you quit?: 1992 - Social History Usual Living Arrangement: 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 Home Medications - Allergies Allergies/Adverse Reactions: Allergies Allergy/AdvReac Type Severity Reaction Status Date / Time No Known Allergies Allergy Verified 08/29/16 08:55 - Home Medications Home Medications: Ambulatory Orders Lisinopril [Prinivil] 20 mg PO DAILY 09/19/11 Potassium Chloride 20 meq PO PRN PRN 09/19/11 Allopurinol [Zyloprim -] 100 mg PO DAILY 08/08/14 Furosemide [Lasix -] 40 mg PO PRN PRN 10/19/14 Aspirin [ASA -] 81 mg PO DAILY 11/02/14 Cholecalciferol (Vitamin D3) [Vitamin D3] 2,000 unit PO DAILY 08/25/16 Metoprolol Succinate [Toprol XL -] 100 mg PO DAILY 08/25/16 Ranitidine [Zantac -] 150 mg PO BID 08/25/16 Saw [place] Xtr/Zinc Picolin [Saw [place] Capsule] 1 each PO DAILY 08/25/16 Family Disease History - Family Disease History Family Disease History: CA: Father, Other: Mother Review of Systems - Review of Systems Constitutional: reports: Chills, Fever Eyes: reports: No Symptoms HENT: reports: No Symptoms Neck: reports: No Symptoms Cardiovascular: reports: No Symptoms Respiratory: reports: No Symptoms Gastrointestinal: reports: No Symptoms Genitourinary: reports: No Symptoms Breasts: reports: No Symptoms Reported Musculoskeletal: reports: No Symptoms Integumentary: reports: Change in Color, Erythema Neurological: reports: No Symptoms Endocrine: reports: No Symptoms Hematology/Lymphatic: reports: No Symptoms Psychiatric: reports: No Symptoms Physical Exam Vital Signs: Vital Signs Temperature 99.5 F 09/03/16 06:44 Pulse Rate 71 09/03/16 06:44 Respiratory Rate 20 09/03/16 08:08 Blood Pressure 126/60 09/03/16 06:44 O2 Sat by Pulse Oximetry (%) 94 L 09/03/16 08:08 Constitutional: Yes: Well Nourished, No Distress, Calm Eyes: Yes: Conjunctiva Clear HENT: Yes: Atraumatic Neck: Yes: Supple, Trachea Midline Cardiovascular: Yes: Regular Rate and Rhythm Respiratory: Yes: Regular, CTA Bilaterally Gastrointestinal: Yes: Normal Bowel Sounds, Soft Musculoskeletal: Yes: Other Extremities: Yes: Erythema (arounfd the operated site), Other Edema: RLE: 1+ Integumentary: Yes: Erythema, Other Wound/Incision: Yes: Dressing Dry and Intact Neurological: Yes: Alert, Oriented Psychiatric: Yes: Alert, Oriented Labs: CBC, BMP 09/03/16 07:30 09/03/16 07:30 Imaging - Results Chest X-ray: Report Reviewed, Image Reviewed Assessment/Plan evaluating the patient his fever could be from the cellulitis we will wait for the blood cx cellulitis of the rt foot fever weakness multiple medical problems plan continue abx will order xray of the foot
[2016-09-03] MEDS: PIPERACILLIN/TAZOB 2.25 GM 50 ML IVPB SCH ×2 (12:08→17:39)
[2016-09-03] MEDS ORDERED: MAGNESIUM SULFATE 2 GM in SODIUM CHLORIDE 100 ML IVPB ONE (12:20)
[2016-09-03 12:59] LABS: URINE APPEARANCE Clear; URINE BILIRUBIN Negative (NEGATIVE); URINE BLOOD Trace-intact (NEGATIVE); URINE COLOR YELLOW; URINE GLUCOSE (UA) Negative (NEGATIVE); URINE KETONE Negative (NEGATIVE); URINE LEUK ESTERASE Negative (NEGATIVE); URINE NITRITE Negative (NEGATIVE); URINE PROTEIN 2+ (NEGATIVE); URINE UROBILINOGEN 0.2 (0.2-1.0)
--- NOTE | 2016-09-03 13:14 | EKG ---
Test Reason : Blood Pressure : / mmHG Vent. Rate : 065 BPM Atrial Rate : 065 BPM P-R Int : 192 ms QRS Dur : 106 ms QT Int : 394 ms P-R-T Axes : 036 -10 -32 degrees QTc Int : 409 ms NORMAL SINUS RHYTHM MINIMAL VOLTAGE CRITERIA FOR LVH, MAY BE NORMAL VARIANT NONSPECIFIC T WAVE ABNORMALITY ABNORMAL ECG WHEN COMPARED WITH ECG OF 18-JUN-2016 20:54, PREMATURE VENTRICULAR COMPLEXES ARE NO LONGER PRESENT Confirmed by FRANCO BOLAND MD ([id number]) on 09/03/2016 1:13:41 PM Referred By: DR AVITIA Confirmed By:FRANCO BOLAND MD
[2016-09-03] MEDS ORDERED: MAGNESIUM SULF 50% (8.12 MEQ/2 ML-1 GM VIAL) IVPB ONE (13:30)
[2016-09-03] MEDS ORDERED: PIPERACILLIN/TAZOB 3.375 GM 3.375 GM in DEXTROSE 5%-WATER - 50 ML IVPB SCH (18:00)
[2016-09-03 19:07] LABS: URINE BACTERIA FEW /hpf (NEGATIVE); URINE WBC 0-1 (3-5)
--- NOTE | 2016-09-03 20:09 | CONSULT ---
Consult Consult Specialty:: Podiatry, Raghu Garcia DPM Reason for Consultation:: Post operative fever possible cellulitis of the right leg - History of Present Illness Chief Complaint: Post operative fever History of Present Illness: Patient underwent partial ostectomy of the base of the first metatarsal and the base of the medial cuneiform to reduce plantar weight bearing pressure in his right charcot foot causing recurrent ulcerations. Patient did not have an open wound during the surgery performed at [facility] on 08/29/2016. Patient underwent out patient surgery and went home ambulatory with a surgical shoe and a prescription for keflex. 2 gm Kefzol was administered IV Pre-operatively. Patient reports yesterday he developed a fever of 103 and decided to report to the hospital ER. Today patient reports his fever and swelling has gone away. - History Source History Provided By: Medical Record - Past Medical History Cardio/Vascular: Yes: CAD, HTN, Hyperlipdemia Gastrointestinal: Yes: Diverticulitis, GERD, Other Hepatobiliary: Yes: Cholelithiasis, Other Renal/: Yes: BPH Musculoskeletal: Yes: Other Rheumatology: Yes: Gout Endocrine: Yes: Diabetes Mellitus - Past Surgical History Past Surgical History: Yes: Arthrosocopy, Hernia Repair, Joint Replacement, Tonsillectomy - Alcohol/Substance Use Hx Alcohol Use: No - Smoking History Smoking history: Former smoker Have you smoked in the past 12 months: No Aproximately how many cigarettes per day: 3 If you are a former smoker, when did you quit?: 1992 - Social History Usual Living Arrangement: 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 Home Medications - Allergies Allergies/Adverse Reactions: Allergies Allergy/AdvReac Type Severity Reaction Status Date / Time No Known Allergies Allergy Verified 08/29/16 08:55 - Home Medications Home Medications: Ambulatory Orders Lisinopril [Prinivil] 20 mg PO DAILY 09/19/11 Potassium Chloride 20 meq PO PRN PRN 09/19/11 Allopurinol [Zyloprim -] 100 mg PO DAILY 08/08/14 Furosemide [Lasix -] 40 mg PO PRN PRN 10/19/14 Aspirin [ASA -] 81 mg PO DAILY 11/02/14 Cholecalciferol (Vitamin D3) [Vitamin D3] 2,000 unit PO DAILY 08/25/16 Metoprolol Succinate [Toprol XL -] 100 mg PO DAILY 08/25/16 Ranitidine [Zantac -] 150 mg PO BID 08/25/16 Saw [place] Xtr/Zinc Picolin [Saw [place] Capsule] 1 each PO DAILY 08/25/16 Family Disease History - Family Disease History Family Disease History: CA: Father, Other: Mother Physical Exam Vital Signs: Vital Signs Temperature 98.7 F 09/03/16 14:13 Pulse Rate 70 09/03/16 14:13 Respiratory Rate 18 09/03/16 14:13 Blood Pressure 113/54 09/03/16 14:13 O2 Sat by Pulse Oximetry (%) 92 L 09/03/16 14:13 Extremities: Yes: Other (Posterior right calf was palpated and is non tender. Anne sign is negative. Legs are of equal size. Right foot and leg is slightly warmer that the left.) Wound/Incision: Yes: Other (Curvalineal surgical incision in the right medial arch shows no dehiscence, drainage, necrosis, edema, erythema or temp increase. Temp gradient is normal. No drainage is expressed on compression of the surgical site. No pain on palpation of the surgical site.) Labs: CBC, BMP 09/03/16 07:30 09/03/16 07:30 Imaging - Results X-ray: Other (I reviewed x-ray images and lateral view shows plantar ostectomy of the first metatarsal base but no erosions or other changes from previous images. Charcot foot is visualized.) Assessment/Plan Assessment Cellulitis of the right lower leg may have been caused but the surgical wound however there are no physical or visual signs of abnormality 5 days post op. There is no local sign of infection and no drainage. Hematology does not show an abnormally high WBC value, and x-ray shows not abnormality that would suggest further Charcot fracture or pathologic erosion. There is nothing to culture from the wound and swab culture of the wound incision would yield no useful diagnostic information. Plan Recommend IV antibiosis as long as possible followed by appropriate PO antibiosis. Because the patient has a fresh surgical wound on the right foot, betadine dressing daily should be applied. No shower yet, and ambulation should be kept to a minimum and always with a surgical shoe to protect the surgical site and help to keep it clean. I will follow the patient in my office after discharge.
[2016-09-04] MEDS: PIPERACILLIN/TAZOB 2.25 GM 50 ML IVPB SCH ×3 (01:27→17:28)
[2016-09-04] MEDS: ACETAMINOPHEN 325 MG TABLET (FP) PO PRN ×2 (01:28→20:03)
[2016-09-04] MEDS: INSULIN SLIDING SCALE (NOVOLOG) 1 VIAL SQ SCH ×3 (06:27→22:39)
[2016-09-04 08:34] LABS: BASOPHIL 0.6 % (0-2.0); EOSINOPHIL 1.8 % (0-4.5); MCHC 30.9 g/dl (32.0-35.9); MEAN CELL VOLUME 67.8 fl (80-96); MEAN PLT VOLUME 8.3 fl (7.5-11.1); NEUTROPHILS 70.8 % (42.8-82.8); PLATELET COUNT 140 K/MM3 (134-434); RDW 15.6 % (11.9-15.9); WHITE BLOOD COUNT 6.1 K/mm3 (4.0-10.8)
[2016-09-04 08:56] LABS: ALBUMIN 2.9 g/dl (3.5-5.0); ALK PHOS 74 U/L (32-92); ANION GAP 8 (8-16); CALCIUM 8.2 mg/dl (8.4-10.2); CO2 18 mmol/L (22-28); CREATININE 1.5 mg/dl (0.6-1.3); MAGNESIUM 1.7 mg/dL (1.8-2.4); PHOSPHOROUS 2.2 mg/dl (2.5-4.6); SGOT/AST 27 U/L (10-42); SGPT/ALT 25 U/L (10-40); TOT PROT 6.2 g/dl (6.4-8.3)
--- NOTE | 2016-09-04 09:58 | PN ---
Progress Note, Physician Chief Complaint: Mr Acuña says he is doing well. Denies cp, sob, n/v. Asking when can he go home. - Current Medication List Current Medications: Active Medications Acetaminophen (Tylenol -) 650 mg PO Q4H PRN PRN Reason: FEVER Last Admin: 09/04/16 01:28 Dose: 650 mg Allopurinol (Zyloprim -) 100 mg PO DAILY [facility] Last Admin: 09/03/16 09:23 Dose: 100 mg Aspirin (Asa -) 81 mg PO DAILY [facility] Last Admin: 09/03/16 09:23 Dose: 81 mg Cholecalciferol (Vitamin D3 -) 2,000 unit PO DAILY [facility] Last Admin: 09/03/16 09:22 Dose: 2,000 unit Heparin Sodium (Porcine) (Heparin -) 5,000 unit SQ BID [facility] Last Admin: 09/03/16 21:03 Dose: 5,000 unit Piperacillin Sod/Tazobactam Sod (Zosyn 2.25gm Ivpb (Pre-Docked)) 50 mls @ 100 mls/hr IVPB Q8H-IV [facility] PRN Reason: Protocol Last Admin: 09/04/16 01:27 Dose: 100 mls/hr Insulin Aspart (Novolog Vial Sliding Scale -) 1 vial SQ ACHS [facility] PRN Reason: Protocol Last Admin: 09/04/16 06:27 Dose: Not Given Lisinopril (Prinivil) 20 mg PO DAILY [facility] Last Admin: 09/03/16 09:23 Dose: 20 mg Metoprolol Succinate (Toprol Xl -) 100 mg PO DAILY [facility] Last Admin: 09/03/16 09:23 Dose: 100 mg Ranitidine HCl (Zantac -) 150 mg PO BID [facility] Last Admin: 09/03/16 21:03 Dose: 150 mg - Objective Vital Signs: Vital Signs Temperature 99.5 F 09/04/16 06:00 Pulse Rate 71 09/04/16 06:00 Respiratory Rate 18 09/04/16 06:00 Blood Pressure 116/54 09/04/16 06:00 O2 Sat by Pulse Oximetry (%) 94 L 09/04/16 06:04 Constitutional: Yes: Well Nourished, No Distress, Calm Cardiovascular: Yes: Regular Rate and Rhythm. No: Gallop, Murmur, Rub Respiratory: Yes: Regular, CTA Bilaterally. No: Rales, Rhonchi, Wheezes Gastrointestinal: Yes: Normal Bowel Sounds, Soft. No: Distention, Tenderness Extremities: Yes: WNL Edema: No Labs: CBC, BMP 09/04/16 07:30 09/04/16 07:30 INR, PTT INR 1.38 (0.82-1.09) H 09/02/16 20:00 Problem List - Problems (1) Cellulitis of foot Assessment/Plan: -much improved -ID following -continue zosyn -begin dispo planning once changed to oral antibiotics Code(s): L03.119 - CELLULITIS OF UNSPECIFIED PART OF LIMB (2) Sepsis Assessment/Plan: -resolved -continue antibiotics Code(s): A41.9 - SEPSIS, UNSPECIFIED ORGANISM Qualifiers: Sepsis type: sepsis due to unspecified organism Qualified Code(s): A41.9 - Sepsis, unspecified organism (3) ARF (acute renal failure) Assessment/Plan: -improving -approaching baseline -continue oral hydration Code(s): N17.9 - ACUTE KIDNEY FAILURE, UNSPECIFIED (4) Diabetes mellitus Assessment/Plan: -continue SSI Code(s): E11.9 - TYPE 2 DIABETES MELLITUS WITHOUT COMPLICATIONS Qualifiers: Diabetes mellitus type: type 2 Diabetes mellitus complication status: without complication (5) Hypertension Assessment/Plan: -continue toprol xl and lisinopril -well controlled Code(s): I10 - ESSENTIAL (PRIMARY) HYPERTENSION Qualifiers: Hypertension type: essential hypertension Qualified Code(s): I10 - Essential (primary) hypertension
[2016-09-04] MEDS ORDERED: MAGNESIUM SULFATE 2 GM in SODIUM CHLORIDE 100 ML IVPB ONE (10:22)
[2016-09-04] MEDS: ALLOPURINOL 100 MG TABLET (FP) PO SCH (10:40)
[2016-09-04] MEDS: METOPROLOL SUCCINATE 100 MG TAB.SR.24H (FP) PO SCH (10:40)
[2016-09-04] MEDS: HEPARIN NA (PORCINE) 5,000 UNITS/ML 1ML VIAL SQ SCH ×2 (10:40→21:53)
[2016-09-04] MEDS: RANITIDINE HCL 150 MG TABLET (FP) PO SCH ×2 (10:40→21:53)
[2016-09-04] MEDS: ASPIRIN 81 MG CHEWABLE TABLETS PO SCH (10:40)
[2016-09-04] MEDS: CHOLECALCIFEROL (VITAMIN D3) 1,000 UNIT TABLET (FP) PO SCH (10:40)
[2016-09-04] MEDS ORDERED: POTASSIUM CHLORIDE TABS 20 MEQ TABLET.ER (FP) PO ONE (10:45)
[2016-09-04] MEDS ORDERED: MAGNESIUM SULF 50% (8.12 MEQ/2 ML-1 GM VIAL) IVPB ONE (11:00)
[2016-09-04 11:24] LABS: GLUCOSE,RANDOM 95 mg/dl (74-106)
--- NOTE | 2016-09-04 13:46 | PN ---
Progress Note, Physician History of Present Illness: patient doing well no new issues says he wants to go home podiatry note noted - Current Medication List Current Medications: Active Medications Acetaminophen (Tylenol -) 650 mg PO Q4H PRN PRN Reason: FEVER Last Admin: 09/04/16 01:28 Dose: 650 mg Allopurinol (Zyloprim -) 100 mg PO DAILY [facility] Last Admin: 09/04/16 10:40 Dose: 100 mg Aspirin (Asa -) 81 mg PO DAILY [facility] Last Admin: 09/04/16 10:40 Dose: 81 mg Cholecalciferol (Vitamin D3 -) 2,000 unit PO DAILY [facility] Last Admin: 09/04/16 10:40 Dose: 2,000 unit Heparin Sodium (Porcine) (Heparin -) 5,000 unit SQ BID [facility] Last Admin: 09/04/16 10:40 Dose: 5,000 unit Piperacillin Sod/Tazobactam Sod (Zosyn 2.25gm Ivpb (Pre-Docked)) 50 mls @ 100 mls/hr IVPB Q8H-IV [facility] PRN Reason: Protocol Last Admin: 09/04/16 10:39 Dose: 100 mls/hr Insulin Aspart (Novolog Vial Sliding Scale -) 1 vial SQ BID [facility] PRN Reason: Protocol Lisinopril (Prinivil) 20 mg PO DAILY [facility] Last Admin: 09/03/16 09:23 Dose: 20 mg Metoprolol Succinate (Toprol Xl -) 100 mg PO DAILY [facility] Last Admin: 09/04/16 10:40 Dose: 100 mg Ranitidine HCl (Zantac -) 150 mg PO BID [facility] Last Admin: 09/04/16 10:40 Dose: 150 mg - Objective Vital Signs: Vital Signs Temperature 99.5 F 09/04/16 06:00 Pulse Rate 71 09/04/16 06:00 Respiratory Rate 18 09/04/16 09:00 Blood Pressure 116/54 09/04/16 06:00 O2 Sat by Pulse Oximetry (%) 94 L 09/04/16 09:00 Constitutional: Yes: No Distress, Calm Neck: Yes: Supple Respiratory: Yes: Regular Gastrointestinal: Yes: Normal Bowel Sounds, Soft Musculoskeletal: Yes: Other Extremities: Yes: Erythema (of the foot improving), Other Wound/Incision: Yes: Clean/Dry, Dressing Removed Neurological: Yes: Alert Psychiatric: Yes: Alert Labs: CBC, BMP 09/04/16 07:30 09/04/16 07:30 INR, PTT INR 1.38 (0.82-1.09) H 09/02/16 20:00 Assessment/Plan evaluating the patient his fever could be from the cellulitis we will wait for the blood cx cellulitis of the rt foot fever weakness multiple medical problems plan continue abx xray of the foot noted podiatry note noted i agree with patient needing couple of days of iv abx and then switching them to oral
[2016-09-04] MEDS: FLUTICASONE PROP 0.05% 16 GM NASAL SPRAY NS SCH (15:27)
[2016-09-05] MEDS: PIPERACILLIN/TAZOB 2.25 GM 50 ML IVPB SCH ×3 (01:43→18:00)
[2016-09-05] MEDS ORDERED: PT OWN MED DRAWER 7, Y5N ONE (09:25)
--- NOTE | 2016-09-05 09:32 | PN ---
Progress Note, Physician Chief Complaint: Mr Acuña says he is doing well. Denies cp, sob, n/v. Very belligerent today saying he is going home. - Current Medication List Current Medications: Active Medications Acetaminophen (Tylenol -) 650 mg PO Q4H PRN PRN Reason: FEVER Last Admin: 09/04/16 20:03 Dose: 650 mg Allopurinol (Zyloprim -) 100 mg PO DAILY [facility] Last Admin: 09/04/16 10:40 Dose: 100 mg Aspirin (Asa -) 81 mg PO DAILY [facility] Last Admin: 09/04/16 10:40 Dose: 81 mg Cholecalciferol (Vitamin D3 -) 2,000 unit PO DAILY [facility] Last Admin: 09/04/16 10:40 Dose: 2,000 unit Fluticasone Propionate (Flonase -) 2 spray NS DAILY [facility] Last Admin: 09/04/16 15:27 Dose: 2 sprays Heparin Sodium (Porcine) (Heparin -) 5,000 unit SQ BID [facility] Last Admin: 09/04/16 21:53 Dose: 5,000 unit Piperacillin Sod/Tazobactam Sod (Zosyn 2.25gm Ivpb (Pre-Docked)) 50 mls @ 100 mls/hr IVPB Q8H-IV [facility] PRN Reason: Protocol Last Admin: 09/05/16 01:43 Dose: 100 mls/hr Insulin Aspart (Novolog Vial Sliding Scale -) 1 vial SQ BID [facility] PRN Reason: Protocol Last Admin: 09/04/16 22:39 Dose: Not Given Lisinopril (Prinivil) 20 mg PO DAILY [facility] Last Admin: 09/03/16 09:23 Dose: 20 mg Metoprolol Succinate (Toprol Xl -) 100 mg PO DAILY [facility] Last Admin: 09/04/16 10:40 Dose: 100 mg Ranitidine HCl (Zantac -) 150 mg PO BID [facility] Last Admin: 09/04/16 21:53 Dose: 150 mg - Objective Vital Signs: Vital Signs Temperature 98.8 F 09/05/16 06:21 Pulse Rate 78 09/05/16 06:21 Respiratory Rate 17 09/05/16 08:43 Blood Pressure 141/72 09/05/16 06:21 O2 Sat by Pulse Oximetry (%) 98 09/05/16 08:43 Constitutional: Yes: Well Nourished, No Distress, Calm Cardiovascular: Yes: Regular Rate and Rhythm. No: Gallop, Murmur, Rub Respiratory: Yes: Regular, CTA Bilaterally. No: Rales, Rhonchi, Wheezes Gastrointestinal: Yes: Normal Bowel Sounds, Soft. No: Distention, Tenderness Extremities: Yes: WNL Edema: No Labs: CBC, BMP 09/04/16 07:30 09/04/16 07:30 INR, PTT INR 1.38 (0.82-1.09) H 09/02/16 20:00 Problem List - Problems (1) Cellulitis of foot Code(s): L03.119 - CELLULITIS OF UNSPECIFIED PART OF LIMB (2) Sepsis Code(s): A41.9 - SEPSIS, UNSPECIFIED ORGANISM Qualifiers: Sepsis type: sepsis due to unspecified organism Qualified Code(s): A41.9 - Sepsis, unspecified organism (3) ARF (acute renal failure) Code(s): N17.9 - ACUTE KIDNEY FAILURE, UNSPECIFIED (4) Diabetes mellitus Code(s): E11.9 - TYPE 2 DIABETES MELLITUS WITHOUT COMPLICATIONS Qualifiers: Diabetes mellitus type: type 2 Diabetes mellitus complication status: without complication (5) Hypertension Code(s): I10 - ESSENTIAL (PRIMARY) HYPERTENSION Qualifiers: Hypertension type: essential hypertension Qualified Code(s): I10 - Essential (primary) hypertension Assessment/Plan (1) Cellulitis of foot Assessment/Plan: -continues to improve -concerning because recent surgery -continue zosyn and ID seeing Code(s): L03.119 - CELLULITIS OF UNSPECIFIED PART OF LIMB (2) Sepsis Assessment/Plan: -resolved -continue antibiotics Code(s): A41.9 - SEPSIS, UNSPECIFIED ORGANISM Qualifiers: Sepsis type: sepsis due to unspecified organism Qualified Code(s): A41.9 - Sepsis, unspecified organism (3) ARF (acute renal failure) Assessment/Plan: -continue oral hydration Code(s): N17.9 - ACUTE KIDNEY FAILURE, UNSPECIFIED (4) Diabetes mellitus Assessment/Plan: -continue SSI Code(s): E11.9 - TYPE 2 DIABETES MELLITUS WITHOUT COMPLICATIONS Qualifiers: Diabetes mellitus type: type 2 Diabetes mellitus complication status: without complication (5) Hypertension Assessment/Plan: -continue toprol xl and lisinopril -well controlled Code(s): I10 - ESSENTIAL (PRIMARY) HYPERTENSION Qualifiers: Hypertension type: essential hypertension Qualified Code(s): I10 - Essential (primary) hypertension
[2016-09-05] MEDS: ASPIRIN 81 MG CHEWABLE TABLETS PO SCH (09:35)
[2016-09-05] MEDS: FLUTICASONE PROP 0.05% 16 GM NASAL SPRAY NS SCH (09:35)
[2016-09-05] MEDS: RANITIDINE HCL 150 MG TABLET (FP) PO SCH ×2 (09:35→21:36)
[2016-09-05] MEDS: CHOLECALCIFEROL (VITAMIN D3) 1,000 UNIT TABLET (FP) PO SCH (09:35)
[2016-09-05] MEDS: HEPARIN NA (PORCINE) 5,000 UNITS/ML 1ML VIAL SQ SCH ×2 (09:35→21:36)
[2016-09-05] MEDS: INSULIN SLIDING SCALE (NOVOLOG) 1 VIAL SQ SCH ×2 (09:35→21:35)
[2016-09-05] MEDS: METOPROLOL SUCCINATE 100 MG TAB.SR.24H (FP) PO SCH (09:35)
[2016-09-05] MEDS: ALLOPURINOL 100 MG TABLET (FP) PO SCH (09:35)
--- NOTE | 2016-09-05 11:59 | PN ---
Progress Note, Physician History of Present Illness: patient stable doing well leg looks much better swelling decreased - Current Medication List Current Medications: Active Medications Acetaminophen (Tylenol -) 650 mg PO Q4H PRN PRN Reason: FEVER Last Admin: 09/04/16 20:03 Dose: 650 mg Allopurinol (Zyloprim -) 100 mg PO DAILY [facility] Last Admin: 09/05/16 09:35 Dose: 100 mg Aspirin (Asa -) 81 mg PO DAILY [facility] Last Admin: 09/05/16 09:35 Dose: 81 mg Cholecalciferol (Vitamin D3 -) 2,000 unit PO DAILY [facility] Last Admin: 09/05/16 09:35 Dose: 2,000 unit Fluticasone Propionate (Flonase -) 2 spray NS DAILY [facility] Last Admin: 09/05/16 09:35 Dose: 2 sprays Heparin Sodium (Porcine) (Heparin -) 5,000 unit SQ BID [facility] Last Admin: 09/05/16 09:35 Dose: 5,000 unit Piperacillin Sod/Tazobactam Sod (Zosyn 2.25gm Ivpb (Pre-Docked)) 50 mls @ 100 mls/hr IVPB Q8H-IV [facility] PRN Reason: Protocol Last Admin: 09/05/16 09:34 Dose: 100 mls/hr Insulin Aspart (Novolog Vial Sliding Scale -) 1 vial SQ BID [facility] PRN Reason: Protocol Last Admin: 09/05/16 09:35 Dose: Not Given Lisinopril (Prinivil) 20 mg PO DAILY [facility] Last Admin: 09/03/16 09:23 Dose: 20 mg Metoprolol Succinate (Toprol Xl -) 100 mg PO DAILY [facility] Last Admin: 09/05/16 09:35 Dose: 100 mg Ranitidine HCl (Zantac -) 150 mg PO BID [facility] Last Admin: 09/05/16 09:35 Dose: 150 mg - Objective Vital Signs: Vital Signs Temperature 98.8 F 09/05/16 06:21 Pulse Rate 78 09/05/16 06:21 Respiratory Rate 17 09/05/16 10:00 Blood Pressure 141/72 09/05/16 06:21 O2 Sat by Pulse Oximetry (%) 98 09/05/16 08:43 Constitutional: Yes: No Distress, Calm Cardiovascular: Yes: Regular Rate and Rhythm Respiratory: Yes: Regular, CTA Bilaterally Gastrointestinal: Yes: Normal Bowel Sounds, Soft Musculoskeletal: Yes: Other Extremities: Yes: Other (mild swelling and erythema) Edema: RLE: 1+ Wound/Incision: Yes: Dressing Dry and Intact Neurological: Yes: Alert, Oriented Psychiatric: Yes: Alert, Oriented Labs: CBC, BMP 09/04/16 07:30 09/04/16 07:30 INR, PTT INR 1.38 (0.82-1.09) H 09/02/16 20:00 Assessment/Plan cellulitis of the rt foot fever weakness multiple medical problems plan blood cx negative patient wants to go home had a detail discussion with the patient patient insistent on going home we have made a plan that the patient will stay today and get the morning dose tomorrow morning patient can be discharged tomorrow after the morning dose of abx to go home on augmentin 500 mg twice a day for 8 more days needs to follow up with primary
[2016-09-05] MEDS: ACETAMINOPHEN 325 MG TABLET (FP) PO PRN (21:36)
[2016-09-06] MEDS: PIPERACILLIN/TAZOB 2.25 GM 50 ML IVPB SCH ×2 (02:22→09:57)
[2016-09-06 08:02] LABS: BASOPHIL 0.7 % (0-2.0); EOSINOPHIL 4.6 % (0-4.5); MCHC 31.2 g/dl (32.0-35.9); MEAN CELL VOLUME 67.1 fl (80-96); MEAN PLT VOLUME 8.1 fl (7.5-11.1); NEUTROPHILS 58.2 % (42.8-82.8); PLATELET COUNT 184 K/MM3 (134-434); RDW 15.3 % (11.9-15.9); WHITE BLOOD COUNT 5.1 K/mm3 (4.0-10.8)
[2016-09-06 08:25] LABS: ANION GAP 6 (8-16); CALCIUM 8.6 mg/dl (8.4-10.2); CO2 19 mmol/L (22-28); CREATININE 1.3 mg/dl (0.6-1.3); GLUCOSE,RANDOM 130 mg/dl (74-106); MAGNESIUM 1.8 mg/dL (1.8-2.4)
--- NOTE | 2016-09-06 09:23 | PN ---
Progress Note, Physician History of Present Illness: stable no complaints - Current Medication List Current Medications: Active Medications Acetaminophen (Tylenol -) 650 mg PO Q4H PRN PRN Reason: FEVER Last Admin: 09/05/16 21:36 Dose: 650 mg Allopurinol (Zyloprim -) 100 mg PO DAILY [facility] Last Admin: 09/05/16 09:35 Dose: 100 mg Aspirin (Asa -) 81 mg PO DAILY [facility] Last Admin: 09/05/16 09:35 Dose: 81 mg Cholecalciferol (Vitamin D3 -) 2,000 unit PO DAILY [facility] Last Admin: 09/05/16 09:35 Dose: 2,000 unit Fluticasone Propionate (Flonase -) 2 spray NS DAILY [facility] Last Admin: 09/05/16 09:35 Dose: 2 sprays Heparin Sodium (Porcine) (Heparin -) 5,000 unit SQ BID [facility] Last Admin: 09/05/16 21:36 Dose: 5,000 unit Piperacillin Sod/Tazobactam Sod (Zosyn 2.25gm Ivpb (Pre-Docked)) 50 mls @ 100 mls/hr IVPB Q8H-IV [facility] PRN Reason: Protocol Last Admin: 09/06/16 02:22 Dose: 100 mls/hr Insulin Aspart (Novolog Vial Sliding Scale -) 1 vial SQ BID [facility] PRN Reason: Protocol Last Admin: 09/05/16 21:35 Dose: Not Given Lisinopril (Prinivil) 20 mg PO DAILY [facility] Last Admin: 09/03/16 09:23 Dose: 20 mg Metoprolol Succinate (Toprol Xl -) 100 mg PO DAILY [facility] Last Admin: 09/05/16 09:35 Dose: 100 mg Ranitidine HCl (Zantac -) 150 mg PO BID [facility] Last Admin: 09/05/16 21:36 Dose: 150 mg - Objective Vital Signs: Vital Signs Temperature 98.1 F 09/06/16 06:42 Pulse Rate 67 09/06/16 06:42 Respiratory Rate 19 09/06/16 06:42 Blood Pressure 135/80 09/06/16 06:42 O2 Sat by Pulse Oximetry (%) 100 09/06/16 06:42 Constitutional: Yes: No Distress, Calm Cardiovascular: Yes: Regular Rate and Rhythm Respiratory: Yes: Regular, CTA Bilaterally Gastrointestinal: Yes: Normal Bowel Sounds, Soft Musculoskeletal: Yes: Other Extremities: Yes: Other Wound/Incision: Yes: Dressing Dry and Intact Neurological: Yes: Alert, Oriented Psychiatric: Yes: Alert, Oriented Labs: CBC, BMP 09/06/16 07:44 09/06/16 07:44 INR, PTT INR 1.38 (0.82-1.09) H 09/02/16 20:00 Assessment/Plan cellulitis of the rt foot fever weakness multiple medical problems plan augmentin 500 mg twice a day for 8 more days needs to follow up with primary
[2016-09-06] MEDS: INSULIN SLIDING SCALE (NOVOLOG) 1 VIAL SQ SCH (09:37)
[2016-09-06] MEDS: ASPIRIN 81 MG CHEWABLE TABLETS PO SCH (09:58)
[2016-09-06] MEDS: HEPARIN NA (PORCINE) 5,000 UNITS/ML 1ML VIAL SQ SCH (09:58)
[2016-09-06] MEDS: LISINOPRIL 20 MG TABLET (FP) PO SCH (09:58)
[2016-09-06] MEDS: ALLOPURINOL 100 MG TABLET (FP) PO SCH (09:58)
[2016-09-06] MEDS: CHOLECALCIFEROL (VITAMIN D3) 1,000 UNIT TABLET (FP) PO SCH (09:58)
[2016-09-06] MEDS: METOPROLOL SUCCINATE 100 MG TAB.SR.24H (FP) PO SCH (09:58)
[2016-09-06 14:04] VITALS: BP 138/70; PULSE 64; TEMP 98.2
--- NOTE | 2016-09-06 17:11 | PN ---
Progress Note (short form) - Note Progress Note: Patient seen and examined by ID and is cleared for discharge Discussed with RN, chart reviewed O/E Laboratory Results - last 24 hr 09/05/16 09/06/16 09/06/16 21:31 07:44 07:44 WBC 5.1 RBC 3.82 L Hgb 8.0 L Hct 25.7 L MCV 67.1 L MCH 21.0 L MCHC 31.2 L RDW 15.3 Plt Count 184 D MPV 8.1 Neutrophils % 58.2 Lymphocytes % 26.2 D Monocytes % 10.3 H Eosinophils % 4.6 H D Basophils % 0.7 Sodium 132 L Potassium 3.5 Chloride 107 Carbon Dioxide 19 L Anion Gap 6 L BUN 18 Creatinine 1.3 POC Glucometer 141 Random Glucose 130 H D Calcium 8.6 Phosphorus 3.0 D Magnesium 1.8 Vital Signs Period Temp Pulse Resp BP Sys/Blanca Pulse Ox Last 24 Hr 98.1 F-98.2 F 64-67 18-19 135-147/70-80 98-100 Current Medications Acetaminophen (Tylenol -) 650 mg PO Q4H PRN PRN Reason: FEVER Last Admin: 09/05/16 21:36 Dose: 650 mg Allopurinol (Zyloprim -) 100 mg PO DAILY [facility] Last Admin: 09/06/16 09:58 Dose: 100 mg Aspirin (Asa -) 81 mg PO DAILY [facility] Last Admin: 09/06/16 09:58 Dose: 81 mg Cholecalciferol (Vitamin D3 -) 2,000 unit PO DAILY [facility] Last Admin: 09/06/16 09:58 Dose: 2,000 unit Fluticasone Propionate (Flonase -) 2 spray NS DAILY [facility] Last Admin: 09/05/16 09:35 Dose: 2 sprays Heparin Sodium (Porcine) (Heparin -) 5,000 unit SQ BID [facility] Last Admin: 09/06/16 09:58 Dose: 5,000 unit Piperacillin Sod/Tazobactam Sod (Zosyn 2.25gm Ivpb (Pre-Docked)) 50 mls @ 100 mls/hr IVPB Q8H-IV [facility] PRN Reason: Protocol Last Admin: 09/06/16 09:57 Dose: 100 mls/hr Insulin Aspart (Novolog Vial Sliding Scale -) 1 vial SQ BID [facility] PRN Reason: Protocol Last Admin: 09/06/16 09:37 Dose: Not Given Lisinopril (Prinivil) 20 mg PO DAILY [facility] Last Admin: 09/06/16 09:58 Dose: 20 mg Metoprolol Succinate (Toprol Xl -) 100 mg PO DAILY [facility] Last Admin: 09/06/16 09:58 Dose: 100 mg Ranitidine HCl (Zantac -) 150 mg PO BID [facility] Last Admin: 09/05/16 21:36 Dose: 150 mg Shall discharge patient as advised and will f/u as OP
== END 2016-09-06 15:10 | disposition home health service (06) | DRG 872 ==
LOC: FER 19:21 → FM/S 21:40
PROVIDERS: ADMIT Internal Medicine; ATTEND Internal Medicine
DX: A41.9 Sepsis, unspecified organism (principal); A52.16 Charcot's arthropathy (tabetic); L03.115 Cellulitis of right lower limb; N17.9 Acute kidney failure, unspecified; J44.9 Chronic obstructive pulmonary disease, unspecified; N40.0 Benign prostatic hyperplasia without lower urinary tract symptoms; D56.9 Thalassemia, unspecified; E11.22 Type 2 diabetes mellitus with diabetic chronic kidney disease; I12.9 Hypertensive chronic kidney disease with stage 1 through stage 4 chronic kidney disease, or unspecified chronic kidney disease; N18.9 Chronic kidney disease, unspecified; M10.9 Gout, unspecified; K21.9 Gastro-esophageal reflux disease without esophagitis; Z79.4 Long term (current) use of insulin
CPT/HCPCS: 36415; 71010-TC; 73610-TC-RT; 73630-TC-RT; 80048; 80053; 81003; 81015; 82550; 82553; 82570; 82803; 83036; 83605; 83735; 84100; 84484; 85025; 85610; 85730; 87040; 93005; 99282-25; G0480; J1644

== ENCOUNTER 2016-10-25 09:18 | Emergency (ER) | payer OTHER, BC ==
--- NOTE | 2016-10-25 09:22 | PDOC ---
History of Present Illness - General Chief Complaint: Pain Stated Complaint: LLQ ABD PAIN Time Seen by Provider: 10/25/16 09:21 History Source: Patient Exam Limitations: No Limitations - History of Present Illness Initial Comments: 10/25/16 10:14 Pt presents to the ED complaining of a 4 day history of constant LLQ abdominal pain. Pain is non radiating, moderate in severity. Patient is unable to describe the pain. Denies fevers, nausea, vomiting or chills. Also complains of groin pain in the area of a hernia mesh repair that has been persistent for several weeks. Denies dysuria, urgency or frequency. patient is having bowel movements and passing flatus, but the bowel movements are small and hard and he still feels constipated. Tolerating PO. Past History - Past Medical History Allergies/Adverse Reactions: Allergies Allergy/AdvReac Type Severity Reaction Status Date / Time No Known Allergies Allergy Verified 10/25/16 09:19 Home Medications: Ambulatory Orders Lisinopril [Prinivil] 20 mg PO DAILY 09/19/11 Allopurinol [Zyloprim -] 100 mg PO DAILY 08/08/14 Aspirin [ASA -] 81 mg PO DAILY 11/02/14 Cholecalciferol (Vitamin D3) [Vitamin D3] 2,000 unit PO DAILY 08/25/16 Ranitidine [Zantac -] 150 mg PO BID 08/25/16 [place] Xtr/Zinc Picolin [[place] Ext 160 mg Cap] 1 each PO DAILY Gabapentin 300 mg PO TID 10/25/16 Glimepiride 2 mg PO DAILY 10/25/16 Metoprolol Succinate [Toprol XL -] 50 mg PO BID 10/25/16 Nifedipine [Procardia Xl] 30 mg PO DAILY 10/25/16 Renick-3/Dha/Epa/Fish Oil [Renick 3 500 Softgel] 300 mg PO DAILY 10/25/16 Polyethylene Glycol 3350 [Miralax (For Bowel Prep) -] 17 gm PO DAILY #1 bottle 10/25/16 Anemia: Yes (mediterranean anemia -thalassemia) Asthma: No Cancer: No Cardiac Disorders: No CVA: No COPD: No CHF: No Dementia: No Diabetes: Yes (NIDDM no medication) GI Disorders: Yes (colon polyps;diverticulitis;ischemic colitis;gerd;adenoma) Disorders: Yes (bph) HTN: Yes Hypercholesterolemia: No Liver Disease: Yes (hx gall stones) Suicide Attempt (Hx): No Seizures: No Thyroid Disease: No - Surgical History Abdominal Surgery: Yes (S/P BENIGNO IH; UMBILICAL HERNIA REPAIR) Appendectomy: Yes Cardiac Surgery: No Cholecystectomy: Yes (10/24) Lung Surgery: No Neurologic Surgery: No Orthopedic Surgery: Yes (LEFT TKR; S/P RIGHT SHOULDER ARTHROSCOPY FOLLOWED BY [facility]) - Immunization History Immunization Up to Date: Yes - Psycho/Social/Smoking Cessation Hx Anxiety: No Suicidal Ideation: No Smoking Status: No (PREVIOUS CIGAR SMOKER) Smoking History: Former smoker Have you smoked in the past 12 months: No Number of Cigarettes Smoked Daily: 3 If you are a former smoker, when did you quit?: 1992 Cigars Per Day: 3 'Breaking Loose' booklet given: 08/22/16 Hx Alcohol Use: No Drug/Substance Use Hx: No Substance Use Type: None Hx Substance Use Treatment: No Review of Systems - Review of Systems Constitutional: Yes: See HPI. No: Symptoms Reported, Chills, Diaphoresis, Fever , Loss of Appetite, Malaise, Night Sweats, Weakness, Weight Stable, Unintentional Wgt. Loss, Unexplained wgt Loss, Other Respiratory: No: Symptoms reported, See HPI, Cough, Orthopnea, Shortness of Breath, SOB with Exertion, SOB at Rest, Stridor, Wheezing, Productive cough, Hemoptysis, Other Cardiac (ROS): No: Symptoms Reported, See HPI, Chest Pain, Edema, Irregular Heart Rate, Lightheadedness, Palpitations, Syncope, Chest Tightness, Other ABD/GI: Yes: Constipated, Abdominal cramping. No: Symptoms Reported, See HPI, Abdominal Distended, Abd. Pain w/ defecation, Blood Streaked Bowels, Diarrhea, Difficulty Swallowing, Nausea, Poor Appetite, Poor Fluid Intake, Rectal Bleeding , Vomiting, Indigestion, Tarry Stools, Other Musculoskeletal: No: Symptoms Reported, See HPI, Back Pain, Gout, Joint Pain, Joint Swelling, Muscle Pain, Muscle Weakness, Neck Pain, Joint Stiffness, Other Integumentary: No: Symptoms Reported, See HPI, Bruising, Change in Color, Change in Hair/Nails, Dryness, Erythema, Flushing, Lesions, Lumps, Pallor, Pruritus, Rash, Sweating, Other Neurological: No: Symptoms reported, See HPI, Headache, Numbness, Paresthesia, Pre-Existing Deficit, Seizure, Tingling, Tremors, Weakness, Unsteady Gait, Ataxia, Dizziness, Other *Physical Exam - Physical Exam Neck: positive: Trachea midline, Supple Respiratory/Chest: positive: Lungs Clear, Normal Breath Sounds Cardiovascular: positive: Regular Rhythm, Regular Rate, S1, S2 Gastrointestinal/Abdominal: positive: Normal Bowel Sounds, Soft. negative: Tender, Flat, Organomegaly, Pulsatile Mass, Increased Bowel Sounds, Decreased BS , Protuberent, Distended, Guarding, Rebound, Tenderness, Hernia, Mass, Hepatomegaly, Spleenomegaly, Other Male Genitalia: positive: normal genitalia. 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 Abdomen is non tender to deep palpation on my exam. Will check labs, likely discharge home if labs are negative. 10/25/16 12:22 blood work is normal except for Na of 129--patient given 1 L NS. patient feels improved and is eating. Will discharge home with miralax for constipation. Patient will return to the ED for worsening abdominal pain. Will follow up with PMD within one week. *DC/Admit/Observation/Transfer Diagnosis at time of Disposition: Abdominal pain Qualifiers: Abdominal location: left lower quadrant Qualified Code(s): R10.32 - Left lower quadrant pain - Discharge Dispostion Disposition: HOME Condition at time of disposition: Good Admit: No - Prescriptions Prescriptions: Polyethylene Glycol 3350 [Miralax (For Bowel Prep) -] 17 gm PO DAILY #1 bottle - Patient Instructions Printed Discharge Instructions: DI for Abdominal Pain-Adult Additional Instructions: return to the ED for severe abdominal pain, pain with nausea and vomiting, vomiting blood or bloody stool. Follow up with your doctor within one week.
[2016-10-25 09:35] VITALS: TEMP 98.4; BMI 30.3
[2016-10-25 10:18] LABS: EOSINOPHIL 1.5 % (0-4.5); MCHC 30.6 g/dl (32.0-35.9); MEAN CELL VOLUME 63.9 fl (80-96); MEAN PLT VOLUME 8.1 fl (7.5-11.1); NEUTROPHILS 68.4 % (42.8-82.8); PLATELET COUNT 241 K/MM3 (134-434); WHITE BLOOD COUNT 7.9 K/mm3 (4.0-10.8)
[2016-10-25 10:20] LABS: PH,URINE 5.5 (4.5-8); URINE APPEARANCE Clear; URINE BILIRUBIN 1+ (NEGATIVE); URINE GLUCOSE (UA) Negative (NEGATIVE); URINE KETONE Negative (NEGATIVE); URINE LEUK ESTERASE Negative (NEGATIVE); URINE NITRITE Negative (NEGATIVE); URINE UROBILINOGEN 0.2 (0.2-1.0)
[2016-10-25 10:31] LABS: ALBUMIN 2.8 g/dl (3.5-5.0); ALK PHOS 66 U/L (32-92); ANION GAP 9 (8-16); BILIRUBIN,TOTAL 0.8 mg/dl (0.2-1.0); CALCIUM 8.3 mg/dl (8.4-10.2); CO2 20 mmol/L (22-28); CREATININE 1.6 mg/dl (0.6-1.3); GLUCOSE,RANDOM 93 mg/dl (74-106); SGOT/AST 30 U/L (10-42); SGPT/ALT 21 U/L (10-40); TOT PROT 6.5 g/dl (6.4-8.3)
[2016-10-25 10:43] LABS: URINE BLOOD Trace-intact (NEGATIVE); URINE COLOR DK YELLOW; URINE PROTEIN 3+ (NEGATIVE)
[2016-10-25 10:44] LABS: MCH 19.5 pg (25.7-33.7)
[2016-10-25 10:52] VITALS: PULSE 20
[2016-10-25] MEDS ORDERED: SODIUM CHLORIDE 0.9% 1000 ML INFUS.BAG IV ONE (11:22)
[2016-10-25 11:24] LABS: URINE RBC 0-1 /hpf (0-3); URINE WBC 0-2 (3-5)
[2016-10-25 11:32] VITALS: BP 117/80
[2016-10-25 11:42] LABS: ANISOCYTOSIS FEW; HYPOCHROMIA 2+; MICROCYTOSIS 3+; PLATELET ESTIMATE ADEQUATE (NORMAL)
== END 2016-10-25 12:51 | disposition home or self-care (01) ==
LOC: FER 09:18
PROC: 3E0337Z Introduction of Electrolytic and Water Balance Substance into Peripheral Vein, Percutaneous Approach (ICD-10-PCS; principal; 2016-10-25)
DX: R10.32 Left lower quadrant pain (principal); E11.9 Type 2 diabetes mellitus without complications; I10 Essential (primary) hypertension; D56.9 Thalassemia, unspecified; K63.5 Polyp of colon
CPT/HCPCS: 36415; 80053; 81003; 81015; 83605; 83690; 85025; 99283-25